=== PATIENT | female | born 1940 | race Caucasian/White ===

== ENCOUNTER 2018-03-23 15:36 | Inpatient (IN) | payer MEDICARE, OTHER ==
[~2018-03-23] VITALS: Ht 147.3 cm; Wt 54.4 kg
[2018-03-23 18:03] LABS: BASOPHILS 0.5 % (0-2); CKMB 4.1 U/L (0.0-3.6); CREATINE KINASE 99 UL (21-215); EOSINOPHILS 0.5 % (0-7); FERRITIN 12 ng/mL (3-244); HEMATOCRIT 23.8 % (36.0-48.0); IMMATURE GRANULOCYTES 0.2 % (0-5); MCHC 27.7 g/dL (31.0-37.0); MCV 71.5 fL (80.0-100.0); MONOCYTES 13.1 % (2-11); NEUTROPHILS 75.7 % (40-80); PLATELET COUNT 139 10x3/uL (130-400); PRO BNP 1754 pg/mL (0-450); RBC 3.33 10x6/uL (4.00-5.40); RDW 17.9 % (11.5-14.5); T4 THYROXINE 7.4 ug/dL (4.7-13.3); THYROID STIMULATING HORMONE 3.75 uIU/mL (0.36-3.74); WBC 5.6 10x3/uL (4.8-10.8)
[2018-03-23 18:06] LABS: HEMOGLOBIN 6.6 g/dL (12-16); MCH 19.8 pg (26.0-34.0)
[2018-03-23] MEDS ORDERED: GLUCOPHAGE1000 MG PO (18:16)
[2018-03-23 18:21] VITALS: BP 131/62; BMI 25.1
[2018-03-23 20:00] VITALS: BP 109/74
[2018-03-23 20:21] LABS: APPEARANCE CLEAR (CLEAR); BILIRUBIN NEGATIVE (NEGATIVE); COLOR STRAW (YELLOW); GLUCOSE NEGATIVE (NEGATIVE); KETONE NEGATIVE (NEGATIVE); NITRITE NEGATIVE (NEGATIVE); PROTEIN NEGATIVE (NEGATIVE); SPECIFIC GRAVITY 1.015 (1.005-1.020)
--- NOTE | 2018-03-23 23:15 | NUR ---
Received patient in bed resting, PIV in left forearm is SL. SCDs on. Lubin catheter in place draining clear yellow urine. Patient forgetful, asked 3 times in 5 minutes to get help up to BR, reminded each time that she has a catheter and shown the tubing, each time responded "you are the first person who told me". Son at bedside. Reminded both son and patient that patient is NPO for a procedure in the morning. Reported from previous nurse that 1st Unit PRBCs has just completed infusing.
[2018-03-24] VITALS (13 sets, daily range): BP systolic 95–123; BP diastolic 56–70; Ht 147.3 cm; Wt 54.4 kg
--- NOTE | 2018-03-24 01:05 | NUR ---
Patient has been given Lasix IV as per orders, to give between Units of PRBCs. Vital Signs taken, 97.9, 107, 20, 116/67 (MAP=78). Second Unit PRBCs initiated at this time. Patient deniesany respiratory distress, no SOB, no fever, tolerating infusion well.
--- NOTE | 2018-03-24 03:12 | NUR ---
Second Unit of PRBCs has infused, VSS except that patient's HR has elevated somewhat in the 120s/min and briefly up to the 130s and low 140s on monitoring coordinator. Patient denies any untoward symptoms, denies fever, denies SOB, denies lightheadedness, denies pain or discomfort. Lubin catheter bag emptied for 2000ml clear yellow urine.
--- NOTE | 2018-03-24 06:48 | HP ---
PATIENT: EVARISTO JOAQUIN MEDICAL RECORD: [id number] ACCOUNT: [id number] LOCATION:[address] : 42 ADMISSION DATE: 03/23/18 PCP: ARLENE OVERTON MD HISTORY AND PHYSICAL EXAMINATION REASON FOR ADMISSION: Leg edema and exertional shortness of breath. HISTORY OF PRESENT ILLNESS: The patient is a 78-year-old female, type 2 diabetic, whom I have not seen in 2 years. She came in today with her son in a wheelchair, complaining of increasing swelling in her lower extremities and exertional shortness of breath over the last 2 months or so. She denied chest pain, change in stools, melena, or hematochezia. The patient appeared clinically anemic and evaluation in the office showed chest x-ray with small bilateral pleural effusions; 4+ edema of the lower extremities to the knees; and irregular heart rate with rates of 160, suggesting AFib. EKG confirmed uncontrolled atrial fibrillation. Her hemoglobin was 6.7 with hematocrit of 24.8, platelet count of 170,000, and MCV of 74. Her creatinine was 1.1, BUN was 19, sodium was 135, glucose was 200, and potassium 4.2. The patient is now being directly admitted to the telemetry floor for transfusion, workup of her anemia, and control of her heart rate. The patient has no cardiac history in the past. PAST MEDICAL HISTORY: Type 2 diabetes mellitus for over 10 years; osteoarthritis, left knee; hyperlipidemia; history of exogenous obesity; essential hypertension; migraine headaches; and postmenopausal. PAST SURGICAL HISTORY: times 2. SOCIAL HISTORY: She is . Her of sudden 10 years ago. She lives with her son. She is nonsmoker, but did smoke in the past. Some coffee consumption. No alcohol use. ALLERGIES: ERYTHROMYCIN, MACROBID, PRAVASTATIN, SULFA, ZETIA, ZOCOR, AND DEPAKOTE. FAMILY HISTORY: Father at 65 with CAD and acute myocardial infarction. Mother at 65 with CAD, hypertension, and diabetes. One brother with CAD. CURRENT MEDICATIONS: Metformin 1000 mg b.i.d., fish oil one daily, aspirin 81 mg a day, and Flonase two nasal sprays each nostril daily. REVIEW OF SYSTEMS: GENERAL: She has had gradual weight gain, exertional shortness of breath, and fatigue. No fever. HEENT: No recent visual change, sinus congestion, or sore throat. RESPIRATORY: Exertional dyspnea with walking one block. She denies PND. Denies cough or chest pain. CARDIAC: No exertional chest pain, palpitations, or claudication, but has noticed marked gradual edema in her lower extremities. She has had no wheezing. GASTROINTESTINAL: No nausea, vomiting, change in stools, or blood per rectum. She has not had colonoscopy. GENITOURINARY: No dysuria or incontinence. GYNECOLOGIC: 2. Post times 2. No vaginal bleeding. ENDOCRINE: Denies polyuria, polydipsia, heat or cold intolerance. NEUROLOGIC: No history of stroke or TIA. She has had remote history of HISTORY AND PHYSICAL [id number] PYMN,EVARISTO migraines, none recently. INTEGUMENT: Denies itching or rash. MUSCULOSKELETAL: Chronic arthralgias, left knee greater than right. PHYSICAL EXAMINATION: VITAL SIGNS: The patient was unable to stand for weight. Blood pressure is 120/80, heart rate is 160-165 and regular. Height is 59 inches. O2 sat is 95% on room air. Pulse as mentioned. GENERAL: The patient is alert and oriented. HEENT: Normocephalic. Her eyes are clear. Her palpebral conjunctivae are pale. She has right lid lag. Oropharynx unremarkable. NECK: Supple. CHEST: She has bilateral crackles without wheeze. She is not tachypneic or retracting. HEART: Irregular rate and rhythm at 160. No murmur appreciated. ABDOMEN: Obese, soft, and nontender. PELVIC: Deferred. RECTAL: Deferred. EXTREMITIES: She has 4+ brawny edema to the knees bilaterally. No petechia. Her skin is extremely pale. INTEGUMENT: Pale. SKIN: No petechia. NEUROLOGIC: Oriented to person, place, and time. Cranial nerves are grossly intact. Gait was not tested. DIAGNOSTIC DATA: EKG shows uncontrolled atrial fibrillation, rate of 165. Poor anterior R waves, suggesting anterior MA, remote. Chest x-ray shows normal cardiac size. Bilateral small pleural effusions. LABORATORY DATA: Lab as above. ASSESSMENT: 1. Uncontrolled atrial fibrillation with high output congestive heart failure. 2. Iron-deficiency anemia, probably exacerbating #1. 3. AODM. 4. Osteoarthritis. 5. Postmenopausal. 6. History of migraine headaches. The patient will be admitted to the monitoring floor. She will be given Lasix. Type and cross for packed cells and transfuse. Cardizem drip. Echocardiogram. Further workup pending clinical course. TRANSINT:[id number] Voice Confirmation ID: [id number] DOCUMENT ID: [id number] HISTORY AND PHYSICAL [id number] EVARISTO JOAQUIN TIMOTHY MD at 0648 CC: [id number] DICTATION DATE: 03/23/18 170 RN RADIATION: 03/23/18 1832 ADM IN [facility] [address] [id number]
--- NOTE | 2018-03-24 07:10 | NUR ---
REPORT RECEIVED FROM RN OPERATING ROOM. PATIENT LAYING IN BED WITH EYES CLOSED AND BREATHING EVENLY . SON IS SLEEPING IN BEDSIDE CHAIR. WILL CONTINUE WITH PLAN OF CARE. SR UP X 2 BED IN LOW POSTION AND CALL LIGHT IN REACH.
[2018-03-24 07:12] LABS: APTT 32.4 SECONDS (22.8-39.4); INR 1.34 (0.85-1.17)
[2018-03-24 07:19] LABS: BASOPHILS 0.9 % (0-2); EOSINOPHILS 0.9 % (0-7); IMMATURE GRANULOCYTES 0.2 % (0-5); LYMPHOCYTES 16.9 % (15-50); MCH 21.4 pg (26.0-34.0); MCHC 29.6 g/dL (31.0-37.0); MCV 72.4 fL (80.0-100.0); MONOCYTES 15.6 % (2-11); NEUTROPHILS 65.5 % (40-80); PLATELET COUNT 129 10x3/uL (130-400); RDW 17.7 % (11.5-14.5); WBC 4.6 10x3/uL (4.8-10.8)
[2018-03-24 07:21] LABS: HEMATOCRIT 29.1 % (36.0-48.0); HEMOGLOBIN 8.6 g/dL (12-16); RBC 4.02 10x6/uL (4.00-5.40)
[2018-03-24 07:25] LABS: ALBUMIN 2.7 g/dL (3.4-5.0); ANION GAP 13.6 mmol/L (8-16); BILIRUBIN - TOTAL 2.73 mg/dL (0.2-1.3); CALCIUM 8.4 mg/dL (8.5-10.1); CARBON DIOXIDE 25.9 mmol/L (21.0-32.0); CREATININE - SERUM 1.1 mg/dL (0.6-1.3); POTASSIUM - SERUM 3.5 mmol/L (3.5-5.1); PROTEIN - SERUM 7.1 g/dL (6.4-8.2)
--- NOTE | 2018-03-24 10:10 | NUR ---
PATIENT IS AWAKE AND ORIENTED X 3. VS ARE GOOD. PATIENT IS NPO AWAITNG EGD. PATIENT DENIES ANY NEEDS OR PAIN. SON AT BEDSIDE. WILL CONTINUE TO MONITOR. SR UP X 2 BED IN LOW POSTION AND CALL LIGHT IN REACH.
--- NOTE | 2018-03-24 14:30 | NUR ---
CONTACTED GI LAB AND SPOKE WITH VANITA. STATED THAT EGD STILL ON SCHEDULE AND WILL BEGIN AT APPROXIMATELY 1600. WILL CONTINUE TO MONITOR PATIENT.
--- NOTE | 2018-03-24 16:26 | NUR ---
PATIENT IS STABLE AND UNCHANGED. VS ARE GOOD. PATIENT TO GI VIA HOPSITAL BED AND GI LAB PERSONNEL.
--- NOTE | 2018-03-24 19:56 | NUR ---
UNIT OF BLOOD STARTED ON PT. PT VITALS STABLE. PT ALERT BUT CONFUSED WITH SHORT TERM MEMORY. PT KEEPS STATING, "I NEED TO PEE." EXPLAINED TO PT THAT THERE IS A FLOEY CATHETER IN PLACE TO NOT HOLD URINE AND LET IT GO. PT HAS TO BE REMINDED EVERY 5 MIN. ABOUT WHATS GOING ON. SHORTTERM MEMORY VERY POOR. BED LOW CALL LIGHT WITHIN REACH. WILL CONTINUE TO MONIOR.
--- NOTE | 2018-03-24 22:09 | NUR ---
PT 1 UNIT OF BLOOD FINISHED TRANSFUSING. VITALS STABLE. NO S/S OF DISTRESS. PT DENIES ANY PAIN OR NEEDS AT THIS TIME. WILL CONTINUE TO MONITOR. SON AT BEDSIDE.
--- NOTE | 2018-03-24 22:31 | NUR ---
CARDIZEM DRIP STARTED AT 10ML/HR. PT BP-124/63 HR-104. NO S/S OF DISTRESS. PT DENIES ANY PAIN OR NEDDS AT THIS TIME. SON AT BEDSIDE. WILL CONTINUE TO MONITOR.
[2018-03-25 00:30] VITALS: BP 107/57
--- NOTE | 2018-03-25 03:56 | NUR ---
PT TRING TO PULL IV OUT OF LFA. ADOLFO WRAPPED COBAN TO PROTECT IV THAT IS RUNNING CARDIZEM. SON AT BEDSIDE. BED LOW CALL LIGHT WITHIN REACH. WILL CONTINUE TO MONITOR.
[2018-03-25 04:00] VITALS: BP 103/58
--- NOTE | 2018-03-25 04:19 | NUR ---
RESTING IN BED WITH EYES CLOSED. NO S/S OF DISTRESS OBSERVED. WILL CONT. POC.
[2018-03-25 05:45] LABS: BASOPHILS 0.2 % (0-2); EOSINOPHILS 0.6 % (0-7); HEMATOCRIT 32.3 % (36.0-48.0); HEMOGLOBIN 9.8 g/dL (12-16); IMMATURE GRANULOCYTES 0.1 % (0-5); LYMPHOCYTES 7.9 % (15-50); MCH 22.3 pg (26.0-34.0); MCHC 30.3 g/dL (31.0-37.0); MCV 73.4 fL (80.0-100.0); MONOCYTES 13.6 % (2-11); NEUTROPHILS 77.6 % (40-80); PLATELET COUNT 140 10x3/uL (130-400); RDW 18.7 % (11.5-14.5); WBC 8.3 10x3/uL (4.8-10.8)
[2018-03-25 06:10] LABS: ALBUMIN 2.6 g/dL (3.4-5.0); ANION GAP 16.1 mmol/L (8-16); BILIRUBIN - DIRECT 0.94 mg/dL (0.00-0.30); BILIRUBIN - INDIRECT 1.68 mg/dL (0.00-1.00); BILIRUBIN - TOTAL 2.62 mg/dL (0.2-1.3); CALCIUM 8.1 mg/dL (8.5-10.1); CREATININE - SERUM 1.2 mg/dL (0.6-1.3); POTASSIUM - SERUM 3.1 mmol/L (3.5-5.1)
[2018-03-25 07:44] VITALS: BP 113/63
--- NOTE | 2018-03-25 08:05 | NUR ---
PT TRYING TO GET OUT OF BED, EVERY 5MINUTES. THINKS THAT SHE HAS TO URINATE, EVEN THOUGHT SHE HAS A GRIFFIN CATHETER. MACHINE INSPECTOR NURSE AND THIS NURSE EXPLAINED TO PT MANY TIMES THAT SHE HAS A GRIFFIN CATHETER THAT IS DRAINING HER BLADDER BUT PT DOES NOT SEEM TO UNDERSTAND. PAGED DR. ARTIS, WAITING KEYMODULE ASSEMBLY MACHINE TENDER BACK.
[2018-03-25 08:16] LABS: FOLATE (FOLIC ACID) - SERUM 8.6 ng/mL (>3.0)
--- NOTE | 2018-03-25 08:35 | NUR ---
AM MEDS GIVEN AT THIS TIME. ALSO GAVE 0.5MG OF ATIVAN FOR ANXIETY, PT STILL STATING THAT SHE NEEDS TO GET OUT OF BED. SON AT BEDSIDE. CALL LIGHT IN REACH, NAD NOTED, WILL CONTINUE TO MONITOR.
[2018-03-25 15:13] VITALS: BP 149/83
--- NOTE | 2018-03-25 17:00 | NUR ---
PROVIDED VERABAL AND WRITTEN DISCHARGE TEACHING TO PT AND , BOTH VERBALIZED UNDERSTANDING REGARDING TEACHING. D/C LT HAND IV WITH CATHETER TIP INTACT. PT LEFT UNIT VIA WHEELCHAIR, ACCOMPANIED BY WITH ALL BELONGINGS. NAD NOTED.
--- NOTE | 2018-03-25 17:12 | NUR ---
BLOOD SUGAR OF 215, 8UNITS OF HUMULIN GIVEN AT THIS TIME. PT RESTING COMFORTABLY AT THIS TIME. SON AT BEDSIDE,NAD NOTED, WILL CONTINUE TO MONITOR.
--- NOTE | 2018-03-25 19:23 | NUR ---
PT IN BED SON AT BEDSIDE. PT DENIES NEEDS AT THIS TIME.
[2018-03-25 19:55] VITALS: BP 130/72
--- NOTE | 2018-03-25 20:17 | NUR ---
ATTEMPTED TO ADMINISTER PO BETAPACE TO PT WHO WAS NOT COOPERATIVE.
[2018-03-25 23:55] VITALS: BP 108/74
--- NOTE | 2018-03-26 01:01 | NUR ---
RESTING IN BED WITH NO DISTRESS. MONITOR AND CPOC. IV CARDIZEM INFUSING. 59 CAF PER TELEMETRY. PT REFUSED HER BEDTIME BETAPACE. SON AT BEDSIDE.
--- NOTE | 2018-03-26 01:33 | NUR ---
DECISION MADE WITH PRIMARY NURSE TO DECREASE RATE OF CARDIZEM TO 5ML/HR AND MONITOR . RATE STAYING 55-60 CAF.
[2018-03-26 03:56] VITALS: BP 135/75
--- NOTE | 2018-03-26 07:25 | NUR ---
ASSESSMENT DONE. DENIES NEEDS.
[2018-03-26 08:28] VITALS: BP 95/63
--- NOTE | 2018-03-26 09:44 | NUR ---
IV PATENT. FAMILY MEMBER AT BS. CALL LIGHT IN REACH. WILL CONT. PLAN OF CARE.
[2018-03-26 12:10] VITALS: BP 98/68
[2018-03-26 16:55] VITALS: BP 132/65
--- NOTE | 2018-03-26 17:37 | NUR ---
SON AT SIDE. WITHOUT CHANGES OR DISTRESS NOTED AT THIS THIS TIME.
[2018-03-26 19:50] VITALS: BP 97/59
[2018-03-26 23:52] VITALS: BP 92/48
[2018-03-27 03:45] VITALS: BP 96/57
[2018-03-27 06:31] LABS: ANION GAP 17.6 mmol/L (8-16); CARBON DIOXIDE 24.5 mmol/L (21.0-32.0); CREATININE - SERUM 1.9 mg/dL (0.6-1.3); POTASSIUM - SERUM 3.1 mmol/L (3.5-5.1)
[2018-03-27 07:50] LABS: BASOPHILS 0.5 % (0-2); EOSINOPHILS 1.7 % (0-7); HEMOGLOBIN 10.4 g/dL (12-16); IMMATURE GRANULOCYTES 0.2 % (0-5); LYMPHOCYTES 10.4 % (15-50); MCH 22.7 pg (26.0-34.0); MCHC 30.6 g/dL (31.0-37.0); MCV 74.1 fL (80.0-100.0); NEUTROPHILS 75.2 % (40-80); PLATELET COUNT 176 10x3/uL (130-400); RBC 4.59 10x6/uL (4.00-5.40); RDW 20.7 % (11.5-14.5); WBC 8.6 10x3/uL (4.8-10.8)
[2018-03-27 08:44] VITALS: BP 95/61
--- NOTE | 2018-03-27 11:46 | EC ---
PATIENT:EVARISTO JOAQUIN DATE OF SERVICE: 03/23/18 SEX: F MEDICAL RECORD: [id number] DATE OF : 42 LOCATION:D.M2 D.212 AGE OF PATIENT: 78 ADMISSION DATE: 03/23/18 REFERRING PHYSICIAN: INTERPRETING PHYSICIAN: KASSIDY FRANCES MD ECHOCARDIOGRAM REPORT ECHO CHARGES 4 ECHO COMPLETE Date: 03/24/18 CLINICAL DIAGNOSIS: CHF/AFIB ECHOCARDIOGRAPHIC MEASUREMENTS (adult normal given) AC root (d.<3.7cm) 2.6 cm LV Septum d (<1.2 cm> 0.8 cm Valve Excursion 1.5 cm LV Septum (systole) 1.1 cm Left Atria (s.<4.0cm> 4.2 cm LVPW d(<1.2cm) 1.2 cm RV (d.<2.3cm) 2.2 cm LVPW (sytole) 1.3 cm LV diastole(<5.6CM) 4.6 cm MV E-F(>70mm/sec) cm LV systole 3.4 cm LVOT Diameter 1.7 cm MV exc.(>10mm) cm Est.ejection fraction (50-75%) % DOPPLER: LVIT cm/sec A cm/sec E 88 cm/sec LA cm/sec RVSP 39.0 mmHg LVOT 90 cm/sec AOP1/2T m/s Asc. Ao 119 cm/sec RVOT 49 cm/sec RA cm/sec PA 64 cm/sec AV Gradient Peak 5.7 mmHg AV Mean 3.1 mmHg AV Area 1.7 cm MV Gradient Peak 6.3 mmHg MV Mean 3.1 mmHg MV Area cm COMMENTS: Private Tutors And Teachers: Corby MILLER Route Sales Trainee: 3 Dr. Pizarro TAPE# PACS Pericardial Effusion N DATE OF SERVICE: ECHOCARDIOGRAM FINDINGS: 1. Left ventricular chamber size is within normal limits. Left ventricular systolic function is mildly depressed. Overall ejection fraction 40%. There is mild global hypokinesis throughout all segments with no discrete wall motion abnormalities present. 2. Left atrium, right atrium and right ventricular chamber sizes are mildly ECHOCARDIOGRAM REPORT [id number] EVARISTO JOAQUIN dilated. 3. Valvular structures have normal structure and motion. 4. Doppler interrogation reveals moderate mitral regurgitation, severe tricuspid regurgitation, no other valvular insufficiency or stenosis. Pulmonary systolic pressure is preserved at 39 mmHg. 5. No evidence of pericardial effusion or left ventricular thrombus. TRANSINT:[id number] Voice Confirmation ID: [id number] DOCUMENT ID: [id number] KASSIDY FRANCES MD at 1146 CC: [id number] DICTATION DATE: 03/24/18 1252 LAUNDRY AID: 03/24/18 2119 ADM IN [facility] [address] [id number]
[2018-03-27 12:02] VITALS: BP 104/64
--- NOTE | 2018-03-27 15:24 | NUR ---
PT IN BED. RESTING QUIETLY. ROOM AIR. BED LOW. CL IN REACH.
[2018-03-27 16:01] VITALS: BP 138/66
--- NOTE | 2018-03-27 16:51 | NUR ---
PT'S GRIFFIN LEAKING. FLUSHED TUBING WITH 10CC OF NS. CHECKED BULB AND IT HAD 2CC NS DISCARDED AND INSERTED GRIFFIN TUBING MORE AND BLEW BULB UP WITH 10CC NS. WILL CONTINUE TO MONITOR.
--- NOTE | 2018-03-27 17:55 | NUR ---
BLADER SCANNED PT AND SHE HAD 0ML. BUT LEAKING AROUND GRIFFIN AND PINK PAD SOILED. SPOKE WITH DR. BARAJAS AND HE STATES TO JUST DC GRIFFIN AND LEAVE IT OUT. VERBALIZED UNDERSTANDING.
--- NOTE | 2018-03-27 18:11 | NUR ---
GRIFFIN CATHETER DC'D PER ORDERS. BEDPAN PLACED IN PT'S ROOM.
--- NOTE | 2018-03-27 18:16 | NUR ---
DR. BARAJAS GAVE ME V.O. TO ORDER PHYSICAL THERAPY.
[2018-03-27 20:00] VITALS: BP 111/56
--- NOTE | 2018-03-27 20:49 | NUR ---
HS MEDS GIVEN CRUSHED IN PUDDING. BED BATH AND LINEN CHANGE COMPLETE, PT INCONTINENT OF URINE.
--- NOTE | 2018-03-27 21:53 | NUR ---
PT YELLING FOR HELP, ENTERED ROOM AND PT TRYING TO GET UP OUT OF BED, PULLING AT IV AND TELEMETRY. ATIVAN 1 MG GIVEN IV FOR S/S AGITATION.
[2018-03-28] VITALS: BP 137/71
--- NOTE | 2018-03-28 00:02 | NUR ---
ASSIST PT WITH USE OF BED GARCIA
--- NOTE | 2018-03-28 03:00 | NUR ---
LYING IN BED WITH EYES CLOSED, CALL LIGHT IN REACH. WILL CONTINUE WITH PLAN OF CARE.
--- NOTE | 2018-03-28 03:44 | NUR ---
RESTING WITH EYES CLOSED, RESPERATIONS EVEN, NO S/S DISTRESS NOTED.
[2018-03-28 04:00] VITALS: BP 118/64
[2018-03-28 06:58] LABS: BASOPHILS 0.8 % (0-2); EOSINOPHILS 2.4 % (0-7); HEMATOCRIT 35.9 % (36.0-48.0); HEMOGLOBIN 10.8 g/dL (12-16); IMMATURE GRANULOCYTES 0.2 % (0-5); LYMPHOCYTES 11.5 % (15-50); MCH 22.5 pg (26.0-34.0); MCHC 30.1 g/dL (31.0-37.0); MCV 74.9 fL (80.0-100.0); MONOCYTES 18.5 % (2-11); NEUTROPHILS 66.6 % (40-80); PLATELET COUNT 183 10x3/uL (130-400); RBC 4.79 10x6/uL (4.00-5.40); RDW 21.3 % (11.5-14.5)
[2018-03-28 06:59] LABS: WBC 6.3 10x3/uL (4.8-10.8)
[2018-03-28 07:03] LABS: ANION GAP 15.2 mmol/L (8-16); CARBON DIOXIDE 25.5 mmol/L (21.0-32.0); CREATININE - SERUM 1.9 mg/dL (0.6-1.3); POTASSIUM - SERUM 3.7 mmol/L (3.5-5.1)
[2018-03-28 09:47] VITALS: BP 174/64
--- NOTE | 2018-03-28 10:32 | NUR ---
BED BATH GIVEN BY THIS NURSE AND FIBERGLASS BONDING MACHINE TENDER AND COMPLETE BED CHANGE DONE.
--- NOTE | 2018-03-28 15:08 | NUR ---
OT NOTE: ATTEMPTED TO EVAL PT IN AM AND PM, HOWEVER, SHE WAS EXTREMEMLY LETHARGIC BOTH TIMES. WILL RE ATTEMPT IN AM. JEMIMA SETHI, OTR/L
[2018-03-28 20:00] VITALS: BP 120/59
--- NOTE | 2018-03-28 20:14 | NUR ---
DR HUGHES AT BED SIDE TO SEE PT.
--- NOTE | 2018-03-28 20:24 | NUR ---
PT YELLING AND CONFUSED OF PLACE AND SITUATION, TRYING TO CLIMB OUT OF BED AND TRYING TO PULL IV OUT, ATIVAN 1 MG GIVEN IV FOR AGITATION.
[2018-03-29] VITALS (11 sets, daily range): BP systolic 100–135; BP diastolic 60–88
--- NOTE | 2018-03-29 03:03 | NUR ---
RN NOTE: PATIENT RESTING COMFORTABLY IN BED. RESPIRATIONS ARE EVEN AND UNLABORED. NO S/S OF DISTRESS. CALL LIGHT WITHIN REACH. WILL CPOC.
--- NOTE | 2018-03-29 03:22 | NUR ---
PT INCONTINENT OF URINE, BATH AND LINEN CHANGE COMPLETE.
--- NOTE | 2018-03-29 04:08 | NUR ---
ASSIST PT WITH USE OF BED GARCIA.
--- NOTE | 2018-03-29 05:23 | NUR ---
ASSIST PT WITHUSE OF BED GARCIA
[2018-03-29 06:39] LABS: ANION GAP 14.2 mmol/L (8-16); CALCIUM 7.7 mg/dL (8.5-10.1); CARBON DIOXIDE 26.2 mmol/L (21.0-32.0); CREATININE - SERUM 1.6 mg/dL (0.6-1.3); POTASSIUM - SERUM 3.4 mmol/L (3.5-5.1)
--- NOTE | 2018-03-29 06:39 | NUR ---
PT ASSISTED WITH USE OF BED GARCIA.
[2018-03-29 06:40] LABS: INR 1.26 (0.85-1.17); PROTIME 15.3 SECONDS (11.6-15.0)
[2018-03-29 06:46] LABS: BASOPHILS 0.9 % (0-2); EOSINOPHILS 2.6 % (0-7); HEMATOCRIT 34.2 % (36.0-48.0); HEMOGLOBIN 10.2 g/dL (12-16); IMMATURE GRANULOCYTES 0.2 % (0-5); LYMPHOCYTES 14.8 % (15-50); MCH 22.4 pg (26.0-34.0); MCHC 29.8 g/dL (31.0-37.0); MONOCYTES 14.8 % (2-11); NEUTROPHILS 66.7 % (40-80); PLATELET COUNT 176 10x3/uL (130-400); RBC 4.56 10x6/uL (4.00-5.40); RDW 21.6 % (11.5-14.5); WBC 5.4 10x3/uL (4.8-10.8)
--- NOTE | 2018-03-29 07:18 | NUR ---
SPOKE WITH DR. OVERTON HE STATES PT IS CLEARED FOR EGD BY HIM.
--- NOTE | 2018-03-29 07:20 | NUR ---
SPOKE WITH DR. LAKE AND SHE STATES PT IS CLEARED BY HIM FOR EGD EVEN THOUGH SHE IS STILL ON THE CARDIZEM DRIP BECAUSE SHE HAS BEEN CONTROLLED AFIB.
--- NOTE | 2018-03-29 07:24 | NUR ---
EGD CONSENTS SIGNED BY PT. PT'S SON STATES "SHE CAN SIGN FOR HERSELF."
--- NOTE | 2018-03-29 08:30 | NUR ---
SPOKE WITH GI LAB AND THEY STATED PT CAN NOT TAKE ANY MEDS IN PUDDING OR SHE WILL HAVE TO WAIT TILL TOMORROW FOR EGD.
--- NOTE | 2018-03-29 09:48 | NUR ---
PT UNABLE TO TAKE SOTALOL WITHOUT OUDDING. SOTALOL HELD.
--- NOTE | 2018-03-29 09:54 | NUR ---
PT SLEEPING AND NOT WAKING UP TO GET UP WITH PHYSICAL THERAPY. P.T. STATES THEY WILL TRY AGAIN LATER.
--- NOTE | 2018-03-29 10:21 | NUR ---
SPOKE WITH GI LAB AND STATED TO THEM PT CAN NOT TAKE THE SOTALOL THEY STATED THAT A DR. BECK ANESTHESIOLOGIST CALL. SPOKE WITH DR. BECK AND HE STATED LETS JUST HOLD SOTALOL TODAY. I VERBALIZED UNDERSTANDING.
--- NOTE | 2018-03-29 10:33 | NUR ---
CONFUSED. LAYING IN BED. CONSENTS FOR EGD SIGNED BY SON ON CHART. SOTALOL HELD PER DUE TO MEDICATIONS BEING CRUSHED AND TAKEN WITH PUDDING. CONTROLLED AFIB ON TELEMETRY. SYEDA GARCIA RESUME PLAN OF CARE. AGREE WITH ASSESSMENT.
--- NOTE | 2018-03-29 12:54 | NUR ---
KIARA HUGHES NOT IN [place] CALLED PHARMACY AND THEY STATED THEY WILL BRING IT.
--- NOTE | 2018-03-29 14:08 | NUR ---
NPO today Previously on Diabetic diet with intake ranging from 0-75% BG 141 today Reviewed chart Will follow up
--- NOTE | 2018-03-29 14:49 | NUR ---
LEFT WRIST 22G IV INSERTED BY VASCULAR ACCESS NURSE.
--- NOTE | 2018-03-29 15:31 | NUR ---
PT IS PREOP'D FOR EGD.
--- NOTE | 2018-03-29 16:00 | NUR ---
PT TAKEN FOR EGD VIA BED.
--- NOTE | 2018-03-29 16:18 | NUR ---
SPOKE WITH BLAKE IN GI LAB THEY STATED THEY HAD A FEW BIOPSIES OBTAINED AND SHE WAS UNDER TIVA AND THEY DID HAVE TO BAG HER A LITTLE BIT BUT SHE CAME OUT OF IT AND IS FINE NOW. THE BIOPSIES WERE OF THE SMALL BOWEL AND STOMACH TO CHECK FOR H. PYLORI AND PT HAD SOME GASTRIC EROSIONS AND GASTRIC ULCERS. PT WILL BE MEDICALLY TREATED AND DR. HE HAS ALREADY CALLED THE ROOM AND SPOKE WITH THE PT'S SON.
--- NOTE | 2018-03-29 16:51 | NUR ---
LYDIA FROM GI LAB STATES THEY ARE HAVING A HARD TIME WAKING PT BUT VS ARE STABLE. SHE STATES IT'S DR. HE'S CALL ON WHAT SHE WANTS TO AND SHE WILL LET ME KNOW.
--- NOTE | 2018-03-29 17:13 | NUR ---
PT ARRIVED TO FLOOR VIA BED FROM GI LAB. AROUSES TO TOUCH. VS STABLE EXCEPT O2 SAT 89% ON ROOM AIR PLACED PT ON 2L OF O2 VIA NC AND SHE IS SATING 92-93%. SON AT BEDSIDE. WILL CONTINUE TO MONITOR.
--- NOTE | 2018-03-29 18:08 | NUR ---
PT AWAKE AND EATING DINNER. VS STABLE.
--- NOTE | 2018-03-29 20:27 | NUR ---
HS MEDS GIVEN, BS 179, COVERED PER S/S. ASSISTED PT WITH USE OF BED GARCIA.
--- NOTE | 2018-03-29 22:31 | NUR ---
HEARD PT SCREAMING, ENTERED ROOM AND PT WAS YELLING FOR HER SON AND FOR SOMEONE TO HELP HER GET UP OUT OF BED, PT HAD LEGS OVER THE SIDE OF THE BED AND ATTEMPTING TO GET UP. MOVED PTS LEGS BACK INTO BED, PULLED PT UP IN BED AND REPOSITIONED HER FOR COMFORT, PT STILL YELLING FOR SOME ONE TO GET HER UP. ATIVAN 1 MG GIVEN FOR S/S AGITATION.
[2018-03-30] VITALS: BP 115/65
--- NOTE | 2018-03-30 01:57 | NUR ---
WOOD TREATING INSPECTOR AT BED SIDE TO ASSIST WITH BED GARCIA.
[2018-03-30 04:00] VITALS: BP 100/60
--- NOTE | 2018-03-30 04:23 | NUR ---
ASSISTED PT WITH USE OF BED GARCIA. REPOSITIONED IN BED FOR COMFORT.
[2018-03-30 06:27] LABS: INR 1.25 (0.85-1.17); PROTIME 15.2 SECONDS (11.6-15.0)
[2018-03-30 06:44] LABS: ALBUMIN 2.7 g/dL (3.4-5.0); ANION GAP 20.1 mmol/L (8-16); BILIRUBIN - DIRECT 1.22 mg/dL (0.00-0.30); BILIRUBIN - INDIRECT 0.85 mg/dL (0.00-1.00); BILIRUBIN - TOTAL 2.07 mg/dL (0.2-1.3); CALCIUM 8.3 mg/dL (8.5-10.1); CARBON DIOXIDE 26.1 mmol/L (21.0-32.0); CREATININE - SERUM 1.4 mg/dL (0.6-1.3); PROTEIN - SERUM 7.3 g/dL (6.4-8.2)
[2018-03-30 06:53] LABS: POTASSIUM - SERUM 4.2 mmol/L (3.5-5.1)
[2018-03-30 07:04] LABS: BASOPHILS 0.6 % (0-2); EOSINOPHILS 1.5 % (0-7); HEMATOCRIT 38.2 % (36.0-48.0); HEMOGLOBIN 11.4 g/dL (12-16); IMMATURE GRANULOCYTES 0.1 % (0-5); LYMPHOCYTES 8.2 % (15-50); MCH 22.6 pg (26.0-34.0); MCHC 29.8 g/dL (31.0-37.0); MCV 75.8 fL (80.0-100.0); MONOCYTES 12.8 % (2-11); NEUTROPHILS 76.8 % (40-80); PLATELET COUNT 195 10x3/uL (130-400); RBC 5.04 10x6/uL (4.00-5.40); RDW 21.9 % (11.5-14.5)
[2018-03-30 07:05] LABS: WBC 8.8 10x3/uL (4.8-10.8)
[2018-03-30 08:00] VITALS: BP 127/75
--- NOTE | 2018-03-30 08:26 | NUR ---
TELEMETRY CAF. IV PATENT. REPOSITIONED FOR BRK. SON AT BS. CALL LIGHT IN REACH. WILL CONT. PLAN OF CARE.
--- NOTE | 2018-03-30 10:03 | NUR ---
Rehab Note- Acute Inpatient REhab prescreeen order received. The patient seems to be a good inpatient rehab candidate when medically stable and ready to be discharged from the acute hospital. She is noted to be on a Cardizem drip at this time. Will continue to follow at this time and will visit withthe patient. Thank you for this referral! Gracie Osuna RN CLincial Liaison, [facility] Rehab
[2018-03-30 11:38] VITALS: BP 137/62
[2018-03-30 14:54] VITALS: BP 130/80
--- NOTE | 2018-03-30 15:18 | NUR ---
OT NOTE: PT REQUIRED MAX A FOR BED MOB. PT REQUIRED MAX A FOR GROOMING TASKS. THANK YOU, AIMEE RODRIGUEZ
--- NOTE | 2018-03-30 18:59 | NUR ---
PT IN BED. SON AT BEDSIDE. PT DENIES NEEDS AT THIS TIME.
--- NOTE | 2018-03-30 19:39 | NUR ---
PT REFUSING CT SCAN AT THIS TIME. THIS WAS THE SECOND ATTEMPT MADE.
[2018-03-30 20:00] VITALS: BP 113/83
[2018-03-31 00:50] VITALS: BP 146/64
--- NOTE | 2018-03-31 04:00 | NUR ---
REEL CART OPERATOR AT BEDSIDE TO OBTAIN VITALS, CALL LIGHT IN REACH. WILL CONTINUE WITH PLAN OF CARE.
[2018-03-31 05:35] VITALS: BP 158/82
[2018-03-31 06:01] LABS: ALBUMIN 2.6 g/dL (3.4-5.0); ANION GAP 14.2 mmol/L (8-16); BILIRUBIN - DIRECT 1.29 mg/dL (0.00-0.30); BILIRUBIN - INDIRECT 0.75 mg/dL (0.00-1.00); BILIRUBIN - TOTAL 2.04 mg/dL (0.2-1.3); CALCIUM 8.4 mg/dL (8.5-10.1); CARBON DIOXIDE 25.6 mmol/L (21.0-32.0); CREATININE - SERUM 1.5 mg/dL (0.6-1.3); POTASSIUM - SERUM 3.8 mmol/L (3.5-5.1); PROTEIN - SERUM 7.1 g/dL (6.4-8.2)
[2018-03-31 06:11] LABS: HEMATOCRIT 37.2 % (36.0-48.0); HEMOGLOBIN 11.1 g/dL (12-16); LYMPHOCYTES 13.4 % (15-50); MCH 22.9 pg (26.0-34.0); MCHC 29.8 g/dL (31.0-37.0); MCV 76.9 fL (80.0-100.0); MEAN PLATELET VOLUME 10.5 fL (7.4-10.4); NEUTROPHILS 73.1 % (40-80); PLATELET COUNT 162 10x3/uL (130-400); RBC 4.84 10x6/uL (4.00-5.40); RDW 21.8 % (11.5-14.5)
[2018-03-31 06:12] LABS: WBC 6.3 10x3/uL (4.8-10.8)
--- NOTE | 2018-03-31 07:28 | NUR ---
PT AWAKE/CONFUSED. SON AT BEDSIDE. CL IN REACH. HAYDER ON. SRX2. NO COMPLAINTS/CONCERNS VOICED AT THIS TIME.
[2018-03-31 08:17] VITALS: BP 139/75
--- NOTE | 2018-03-31 09:54 | NUR ---
PHYSICAL THEREAPY ASSISTED PT TO BEDSIDE COMMODE AN DREQUESTS THAT THEY ASSIST HER BACK. PT IS CONFUSED AND FRUSTRATED SHE CAN'T GO TO THE REGULAR TOILET DESITE MY NUMEROUS EXPLANATIONS. CL IN REACH. SON OUTSIDE DOOR. PT REQUESTS PRIVACY TO HAVE A B.M.
--- NOTE | 2018-03-31 09:59 | NUR ---
PT HAD LARGE B.M. GREATFUL TO USE TOILET.
--- NOTE | 2018-03-31 10:03 | NUR ---
CONCERNED FOR CAREGIVER. HE IS OBVIOUSLY FRSTRATED WITH THE PATIENT AND GETS VERBALLY DEMANDING. SUGGESTED TO HIM HE GO OUT AND GET SOME FOOD OR HOME AND GET SOME REST. WAS IGNORED. HE COMES OFF ANGRY AND FLAT. ASKED CASE MANAGMENT TO SPEAK WITH HIM ABOUT CAREGIVER BURNOUT AND HOPEFULLY CONVINCE HIM TO TAKE SOME TIME FOR HISELF.
[2018-03-31 12:00] VITALS: BP 124/74
--- NOTE | 2018-03-31 13:27 | NUR ---
REVIEWED AND AGREE WITH ASSESMENT.
--- NOTE | 2018-03-31 14:32 | NUR ---
OT NOTE: PT PERFORMED MUCH BETTER TODAY. SHE WANTED TO GO TO BATHROOM, AND WAS ABLE TO TRANSFER WITH MUCH IMPROVEMENT, SHE HAD A PURPOSE TO GET UP. BED MOB WITH MIN ASSIST; TRANSFER FROM BED TO TOILET WITH MIN ASSIST AND USE OF BS COMMODE. ATTEMPTED PERINEAL CARE, HOWEVER, REQUIRED ASSIST FOR THOROUGH CLEANING. JEMIMA SETHI, OTR/L
[2018-03-31 14:59] VITALS: BP 140/80
--- NOTE | 2018-03-31 15:39 | MORECARE ---
CASE MANAGEMENT DISCHARGE SUMMARY PATIENT: EVARISTO JOAQUIN UNIT: [id number] ADM DATE: 03/23/18 AGE: 78 : 42 SEX: F ROOM/BED: D.8079 AUTHOR: EDGARD MON PHYSICIAN: REFERRING PHYSICIAN: ARLENE OVERTON MD DATE OF SERVICE: 03/31/18 Discharge Plan Patient Name: EVARISTO JOAQUIN [facility] [facility] 1940 Planned Disposition: Inpatient Rehab Anticipated Discharge Date: Discharge Date: Expected LOS: Initial Reviewer: [id number] Initial Review Date: 03/31/2018 Generated: 03/31/18 4:38 pm Comments DCP- Discharge Planning Updated by [id number]: Saul Avery on 03/31/18 2:[address] Patient Name: EVARISTO JOAQUIN Admission Status: Urgent Accout number: [id number] Admission Date: 03-23-2018 : 1940 Admission Diagnosis:SHORTNESS OF BREATH Attending: ARLENE OVERTON Current LOS: 8 Anticipated DC Date: Planned Disposition: Inpatient Rehab Primary Insurance: MEDICARE A & B PLANNED EXTERNAL PROVIDER: [facility] INPATIENT REHAB Discharge Planning Comments: CM RECEIVED ORDER FOR INPATIENT REHAB PRESCREENING. CM MET WITH PT IN ROOM TO DISCUSS DISCHARGE PLANNING AND NEEDS. PT REPORTS LIVING AT HOME INDEPENDENTLY WITH HER SON. PT HAS CPAP AND DOES NOT REMEMBER THE NAME OF HER MEDICAL EQUIPMENT PROVIDER. PT HAS NO OUTSIDE SERVICES ASSISTING IN THE HOME. CM DISCUSSED AVAILABILITY OF HOME HEALTH, REHAB SERVICES AND MEDICAL EQUIPMENT. CM DISCUSSED PROVIDERS AND LOCATIONS OF INPATIENT AND CUSTODIAL REHAB PROVIDERS. PT DOES NOT WANT TO GO TO CUSTODIAL FACILITY, PT REPORTS SHE WOULD GO TO REHAB "HERE". PT REPORTS SHE WAS IN [facility] REHAB A COUPLE OF WEEKS AGO BUT WOULD LIKE TO STAY HERE. PT STATES SHE WAS HOME FOR ABOUT ONE WEEK BEFORE GETTING SICK AGAIN AND COMING TO THE HOSPITAL. PT REPORTS HER SON WILL PICK HER UP FOR DISCHARGE HOME. CM REVIEWED CHART, REHAB AT [place] NOTED PT IS GOOD CANDIDATE FOR REHAB WHEN MEDICALLY STABLE. CM WAITING MEDICAL STABILITY AND COMPLETION OF INPATIENT REHAB PRESCREENING BY [facility] INPATIENT REHAB. Securities Clerk: Saul Avery DCPIA - Discharge Planning Initial Assessment Updated by [id number]: Saul Avery on 03/31/18 3:33 pm * Is the patient Alert and Oriented? Yes * How many steps to enter\\exit or inside your home? * PCP DR. OVERTON * [facility] * Preadmission Environment Home with Family * ADLs Independent * Equipment CPAP * Other Equipment UNKNOWN MEDICAL EQUIPMENT PROVIDER * List name and contact numbers for known caregivers / representatives who currently or will assist patient after discharge: LISSETT JOAQUIN, SON, * Verbal permission to speak to the caregivers and representatives has been obtained from the patient. Yes * Community resources currently utilized None * Please name any agencies selected above. NONE * Additional services required to return to the preadmission environment? Yes * Can the patient safely return to the preadmission environment? Yes * Has this patient been hospitalized within the prior 30 days at any hospital? Yes Patient Name: EVARISTO JOAQUIN Page [id number] at 1539 All edits/amendments must be made on the electronic document DICTATION DATE: 03/31/181537 CONTINUOUS IMPROVEMENT FACILITATOR: FLOR 03/31/181537 RPT#: [id number] DC DATE: STATUS: ADM IN [facility] [address] [place] [address] END OF REPORT
[2018-03-31 20:00] VITALS: BP 118/75
--- NOTE | 2018-03-31 20:07 | NUR ---
RECIEVED UP IN BED WITH SPOUSE AT BEDSIDE. ALERT AND ORIENTED X4. UP AD ROEL. IV TO LEFT AC SL.. REMAINS ON DROPPLET ISOLATION R/T POSITIVE INFLUENZA. DENIES ANY NEEDDS AT THIS TIME.
--- NOTE | 2018-03-31 20:30 | NUR ---
RECIEVED SITTING ON THE FLOOR WITH BACK AGAINST THE BED. ROM WNL.V/S'S 97.6,77,128/76, 18 AND O2 SAT 96% ON ROOM AIR. UNABLE TO SAY WHY SHE WAS GETTING OUT OF BED. BOTH ARMS HAVE LARGE DARK PURPLE BRUISING WITH RIGHT ELBOW HAS DRIED UP ABRASION. GENERALIZED EDEMA TO UPPER EXTREMITIES. ALERT AND ORIENTED TO PERSON ONLY.
--- NOTE | 2018-03-31 21:38 | NUR ---
OT NOTE: PT COMPLETED BED MOB WITH MOD A. PT COMPLETED GROOMING WITH MOD A. THANK YOU, AIMEE RODRIGUEZ
[2018-04-01 00:05] VITALS: BP 126/80
[2018-04-01 04:00] VITALS: BP 133/70
--- NOTE | 2018-04-01 08:18 | NUR ---
PATIENT IS ALERT AND AWAKE. SHE IS CONFUSED AT THIS TIME. HE SON IS AT BEDSIDE AND HER BED ALARM IS ON.
[2018-04-01 09:57] VITALS: BP 131/77
--- NOTE | 2018-04-01 10:52 | NUR ---
DR OVERTON ASKED THAT THE CARDEZEM DRIP BE STOPPED. CARDEZEM DRIP STOPPED NOW. PATIENT IS AWAKE AND ALERT. SON IS AT BEDSIDE. BED ALARM ON.
--- NOTE | 2018-04-01 11:08 | NUR ---
RN ROUNDS. PATIENT LYING IN BED WITH ATTENTION TOWARD TELEVISION. CALL LIGHT WITHIN REACH. MALE VISITOR AT BEDSIDE. PATIENT ON TELEMETRY, HR SR 70 AT THIS TIME. NO DISTRESS.
[2018-04-01 12:46] VITALS: BP 136/77
[2018-04-01 17:45] VITALS: BP 120/70
--- NOTE | 2018-04-01 19:11 | NUR ---
RECIEVED LAYING IN BED WITH EYES CLOSED AND HOB ELEVATED. EASILY AROUSES WITH VERBAL STIMULI. BED ALARM IN PLACE AND DOOR OPEN. SON NOT AT BEDSIDE AT THIS TIME. TELEMETRY IN PLACE. LARGE BRUISES ON DENISSE ARMS. IV TO LEFT WRIST SL.. CONFUSED TO PLACE AND TIME. NO S/S OF DISTRESS OBSERVED. WILL CONT. POC.
[2018-04-01 20:00] VITALS: BP 147/89
[2018-04-02] VITALS: BP 115/67
[2018-04-02 04:00] VITALS: BP 118/68
[2018-04-02 05:41] LABS: BASOPHILS 0.7 % (0-2); EOSINOPHILS 2.3 % (0-7); HEMATOCRIT 34.2 % (36.0-48.0); HEMOGLOBIN 9.9 g/dL (12-16); IMMATURE GRANULOCYTES 0.2 % (0-5); LYMPHOCYTES 16.8 % (15-50); MCH 22.6 pg (26.0-34.0); MCHC 28.9 g/dL (31.0-37.0); MCV 77.9 fL (80.0-100.0); MEAN PLATELET VOLUME 10.3 fL (7.4-10.4); MONOCYTES 15.5 % (2-11); NEUTROPHILS 64.5 % (40-80); PLATELET COUNT 133 10x3/uL (130-400); RBC 4.39 10x6/uL (4.00-5.40); RDW 22.4 % (11.5-14.5)
[2018-04-02 05:51] LABS: WBC 4.4 10x3/uL (4.8-10.8)
[2018-04-02 06:48] LABS: ANION GAP 13.2 mmol/L (8-16); CALCIUM 8.3 mg/dL (8.5-10.1); CARBON DIOXIDE 26.3 mmol/L (21.0-32.0); CREATININE - SERUM 1.3 mg/dL (0.6-1.3); POTASSIUM - SERUM 3.5 mmol/L (3.5-5.1)
--- NOTE | 2018-04-02 07:39 | NUR ---
PT LYING IN BED, AWAKE/CONFUSED. SON ASLEEP AT BEDSIDE. CL IN REACH.SRX2. BED ALARM ON. NO CONCERNS/COMPLAINTS VOICED AT THIS TIME.
[2018-04-02 08:33] VITALS: BP 122/74
--- NOTE | 2018-04-02 12:00 | NUR ---
RN ROUNDS. RESTING IN BED. DENIES NEEDS. APPELLATE COURT CLERK TAKING VITAL SIGNS. PATIENT IS ON TELEMETRY, 97 CONTROLLED AFIB. NO DISTRESS.
[2018-04-02 13:26] VITALS: BP 129/82
[2018-04-02 17:01] VITALS: BP 108/77
--- NOTE | 2018-04-02 19:35 | NUR ---
EVENING ROUNDS COMPLETED. REPORT RECEIVED. PT SITTING UP IN BED WITH EYES CLOSED, RR EVEN AND UNLABORED. BED IN LOW POSITION. 80 CONTROLLED AFIB ON TELEMETRY. NO S/S OF DISTRESS NOTED. CALL LIGHT IN REACH. WILL CTM.
--- NOTE | 2018-04-02 19:37 | NUR ---
HAYDER ALARM TURNED ON AND PLACED UNDERNEATH PT.
[2018-04-02 20:00] VITALS: BP 122/77
[2018-04-03] VITALS: BP 107/65
--- NOTE | 2018-04-03 00:26 | NUR ---
PT SITTING UP IN BED WITH EYES CLOSED, RR EVEN AND UNLABORED. HAYDER ALARM TURNED ON, SON AT BEDSIDE. NO S/S OF DISTRESS NOTED. CALL LIGHT IN REACH. WILL CTM.
--- NOTE | 2018-04-03 02:01 | NUR ---
AGREE WITH ASSESSMENT. PT RESTING WITH EYES CLOSED. RESP EVEN AND REGULAR. BED IN HIGH FOWLERS. SON AT BEDSIDE. SR UP X2, CALL LIGHT WITHIN REACH, BED ALARM ON AND DOOR OPEN.
[2018-04-03 04:00] VITALS: BP 108/66
[2018-04-03 08:21] VITALS: BP 109/79
--- NOTE | 2018-04-03 09:00 | NUR ---
PT RESTING IN BED YELLING OUT FOR PAULETTE AND I ASKED WHO SHE WAS ASKING FOR SHE SAID HER BROTHER IT WAS NOTED THAT HER BROTHER IS PASSED WILL MONITER CALL LIGHT IN YELLOW
--- NOTE | 2018-04-03 10:15 | NUR ---
PTS MEDS WERE CRUSHED PT TOOK ON BITE AND REFUSED TO TAKE ANOTHER SHE GRABBED MY HAND AND SAID NO
--- NOTE | 2018-04-03 10:16 | NUR ---
TELEMETRY CAF. HR 89. RETS IN BED WITH CALL LIGHT IN REACH. WILL MONITOR NEEDS.
--- NOTE | 2018-04-03 12:05 | NUR ---
Visited with the patient this AM. She is a little confused stating she lives with her brother who has according to nursing. The nurses also state she got out of bed and fell Tuesday. The nurses feel she may need a psych eval. Rehab will follow. Discussed with the CM Tom. Sarah Hollins RN Clinical Liaison, Rehab
--- NOTE | 2018-04-03 12:26 | NUR ---
ASSESMENT REVIEWED AND AGREE WITH.
[2018-04-03 12:52] VITALS: BP 121/76
--- NOTE | 2018-04-03 15:11 | NUR ---
OT NOTE: PERFORMED BED MOB WITH MOD ASSIST; AMB WITH MOD ASSIST AND USE OF WALKER; SCOOTED UP IN BED WITH MIN ASSIST; REMAINS CONFUSED. JEMIMA SETHI OTR/L
[2018-04-03 15:43] VITALS: BP 129/82
--- NOTE | 2018-04-03 18:12 | NUR ---
PT RESTING IN BED WITH EYES OPEN EATING SUPPER SON AT BEDSIDE CALL LIGHT IN REACH NO PROBLEMS WILL MONITER
--- NOTE | 2018-04-03 19:07 | NUR ---
RECIEVED UP IN BED WITH EYES CLOSED. SON AT BEDSIDE.EASILY AROUSES WITH VERBAL STIMULI. CONTINUES TO BE ORIENTED X1. NO S/S OF DISTRESS OBSERVED.
[2018-04-03 20:00] VITALS: BP 108/73
[2018-04-04] VITALS: BP 120/94
[2018-04-04 04:00] VITALS: BP 112/66
[2018-04-04 09:06] VITALS: BP 131/75
--- NOTE | 2018-04-04 11:14 | NUR ---
RESTS IN BED WITH CALL LIGHT IN REACH. SON AT BS. REVIEWED AND AGREE WITH ASSESMENT.
--- NOTE | 2018-04-04 11:24 | MORECARE ---
CASE MANAGEMENT DISCHARGE SUMMARY PATIENT: EVARISTO JOAQUIN UNIT: [id number] ADM DATE: 03/23/18 AGE: 78 : 42 SEX: F ROOM/BED: D.4383 AUTHOR: EDGARD MON PHYSICIAN: REFERRING PHYSICIAN: ARLENE OVERTON MD DATE OF SERVICE: 04/04/18 Discharge Plan Patient Name: EVARISTO JOAQUIN [facility] [facility] 1940 Planned Disposition: Inpatient Rehab Anticipated Discharge Date: 04/04/18 Discharge Date: Expected LOS: 12 Initial Reviewer: [id number] Initial Review Date: 03/31/2018 Generated: 04/04/18 12:23 pm Comments DCP- Discharge Planning Updated by [id number]: Saul Avery on 03/31/18 2:[address] Patient Name: EVARISTO JOAQUIN Admission Status: Urgent Accout number: [id number] Admission Date: 03-23-2018 : 1940 Admission Diagnosis:SHORTNESS OF BREATH Attending: ARLENE OVERTON Current LOS: 8 Anticipated DC Date: Planned Disposition: Inpatient Rehab Primary Insurance: MEDICARE A & B PLANNED EXTERNAL PROVIDER: [facility] INPATIENT REH[facility] Discharge Planning Comments: CM RECEIVED ORDER FOR INPATIENT REHAB PRESCREENING. CM MET WITH PT IN ROOM TO DISCUSS DISCHARGE PLANNING AND NEEDS. PT REPORTS LIVING AT HOME INDEPENDENTLY WITH HER SON. PT HAS CPAP AND DOES NOT REMEMBER THE NAME OF HER MEDICAL EQUIPMENT PROVIDER. PT HAS NO OUTSIDE SERVICES ASSISTING IN THE HOME. CM DISCUSSED AVAILABILITY OF HOME HEALTH, REHAB SERVICES AND MEDICAL EQUIPMENT. CM DISCUSSED PROVIDERS AND LOCATIONS OF INPATIENT AND SENIOR LIVING REHAB PROVIDERS. PT DOES NOT WANT TO GO TO SENIOR LIVING FACILITY, PT REPORTS SHE WOULD GO TO REHAB "HERE". PT REPORTS SHE WAS IN [facility] REH[facility] A COUPLE OF WEEKS AGO BUT WOULD LIKE TO STAY HERE. PT STATES SHE WAS HOME FOR ABOUT ONE WEEK BEFORE GETTING SICK AGAIN AND COMING TO THE HOSPITAL. PT REPORTS HER SON WILL PICK HER UP FOR DISCHARGE HOME. CM REVIEWED CHART, REHAB AT [place] NOTED PT IS GOOD CANDIDATE FOR REHAB WHEN MEDICALLY STABLE. CM WAITING MEDICAL STABILITY AND COMPLETION OF INPATIENT REHAB PRESCREENING BY [facility] INPATIENT REH[facility]. Fire Department Marine Engineer: Saul Avery DCPIA - Discharge Planning Initial Assessment Updated by [id number]: Saul Avery on 03/31/18 3:33 pm * Is the patient Alert and Oriented? Yes * How many steps to enter\\exit or inside your home? * PCP DR. OVERTON * [facility] * Preadmission Environment Home with Family * ADLs Independent * Equipment CPAP * Other Equipment UNKNOWN MEDICAL EQUIPMENT PROVIDER * List name and contact numbers for known caregivers / representatives who currently or will assist patient after discharge: LISSETT JOAQUIN, SON, * Verbal permission to speak to the caregivers and representatives has been obtained from the patient. Yes * Community resources currently utilized None * Please name any agencies selected above. NONE * Additional services required to return to the preadmission environment? Yes * Can the patient safely return to the preadmission environment? Yes * Has this patient been hospitalized within the prior 30 days at any hospital? Yes Last DP export: 03/31/18 2:38 p Patient Name: EVARISTO JOAQUIN Page [id number] at 1124 All edits/amendments must be made on the electronic document DICTATION DATE: 04/04/18 112 CHECKING DEPARTMENT SUPERVISOR: FLOR 04/04/181122 RPT#: [id number] MD DATE: STATUS: ADM IN [facility] [address] [place] [address] END OF REPORT
--- NOTE | 2018-04-04 11:37 | MORECARE ---
CASE MANAGEMENT DISCHARGE SUMMARY PATIENT: EVARISTO JOAQUIN UNIT: [id number] ADM DATE: 03/23/18 AGE: 78 : 42 SEX: F ROOM/BED: D.2165 AUTHOR: EDGARD MON PHYSICIAN: REFERRING PHYSICIAN: ARLENE OVERTON MD DATE OF SERVICE: 04/04/18 Discharge Plan Patient Name: EVARISTO JOAQUIN Facility[facility]:[place] : 1940 Planned Disposition: Inpatient Rehab Anticipated Discharge Date: 04/04/18 Discharge Date: Expected LOS: 12 Initial Reviewer: [id number] Initial Review Date: 03/31/2018 Generated: 04/04/18 12:37 pm Comments DCP- Discharge Planning Updated by [id number]: Saul Avery on 04/04/18 10:[address] Patient Name: EVARISTO JOAQUIN Encounter No: [id number] : 1940 Primary Insurance: MEDICARE A & B Anticipated DC Date: 04-04-2018 Planned Disposition: Inpatient Rehab External Planned Provider: [facility] INPATIENT REH[facility] DCP follow-up note: CM SPOKE TO ANA ROSA OF INPATIENT REHAB, THEY PLAN TO ACCEPT PT TODAY FOR REHAB ONCE ALL CONSULTS AND TESTING ARE COMPLETED. CM CALLED AND SPOKE TO DR. OVERTON'S NURSE, LEYDI, DISCUSSED DR. FRANCO TODAY REGARDING NO LONGER NEEDING PSYCH CONSULTATION AND REHAB TO ACCEPT AFTER ULTRASOUND AND IF PT NEEDS ANTICOAGULATION, IT WILL NEED TO BE STARTED PRIOR TO DISCHARGE TO REHAB. CM RECEIVED CALL FROM LEYDI WHO INFORMED CM THAT DR. OVERTON WILL DISCHARGE PT TODAY TO INPATIENT REHAB. PT AND SON LISSETT NOTIFIED IN ROOM, IN AGREEMENT WITH DISCHARGE TO INPATIENT REHAB. IMPORTANT MESSAGE FROM MEDICARE PROVIDED AND EXPLAINED. CM NOTIFIED ANA ROSA OF INPATIENT REHAB. [facility] INPATIENT REH[facility] TO CONTACT MED 2 NURSE WITH ROOM NUMBER WHEN READY TO ACCEPT PT AND NURSE REPORT. GENEVIEVE Torres DCP- Discharge Planning Updated by [id number]: Saul Avery on 03/31/18 2:[address] Patient Name: EVARISTO JOAQUIN Admission Status: Urgent Accout number: [id number] Admission Date: 03-23-2018 : 1940 Admission Diagnosis:SHORTNESS OF BREATH Attending: ARLENE OVERTON Current LOS: 8 Anticipated DC Date: Planned Disposition: Inpatient Rehab Primary Insurance: MEDICARE A & B PLANNED EXTERNAL PROVIDER: [facility] IN[facility] RE[facility] Discharge Planning Comments: CM RECEIVED ORDER FOR INPATIENT REHAB PRESCREENING. CM MET WITH PT IN ROOM TO DISCUSS DISCHARGE PLANNING AND NEEDS. PT REPORTS LIVING AT HOME INDEPENDENTLY WITH HER SON. PT HAS CPAP AND DOES NOT REMEMBER THE NAME OF HER MEDICAL EQUIPMENT PROVIDER. PT HAS NO OUTSIDE SERVICES ASSISTING IN THE HOME. CM DISCUSSED AVAILABILITY OF HOME HEALTH, REHAB SERVICES AND MEDICAL EQUIPMENT. CM DISCUSSED PROVIDERS AND LOCATIONS OF INPATIENT AND CARE HOME REHAB PROVIDERS. PT DOES NOT WANT TO GO TO CARE HOME FACILITY, PT REPORTS SHE WOULD GO TO REHAB "HERE". PT REPORTS SHE WAS IN [facility] REHAB A COUPLE OF WEEKS AGO BUT WOULD LIKE TO STAY HERE. PT STATES SHE WAS HOME FOR ABOUT ONE WEEK BEFORE GETTING SICK AGAIN AND COMING TO THE HOSPITAL. PT REPORTS HER SON WILL PICK HER UP FOR DISCHARGE HOME. CM REVIEWED CHART, REHAB AT [place] [facility] NOTED PT IS GOOD CANDIDATE FOR REHAB WHEN MEDICALLY STABLE. CM WAITING MEDICAL STABILITY AND COMPLETION OF INPATIENT REHAB PRESCREENING BY [facility] IN[facility]. Manager Alliance: aSul Avery DCPIA - Discharge Planning Initial Assessment Updated by [id number]: Saul Avery on 03/31/18 3:33 pm * Is the patient Alert and Oriented? Yes * How many steps to enter\\exit or inside your home? * PCP DR. OVERTON * [facility] * Preadmission Environment Home with Family * ADLs Independent * Equipment CPAP * Other Equipment UNKNOWN MEDICAL EQUIPMENT PROVIDER * List name and contact numbers for known caregivers / representatives who currently or will assist patient after discharge: LISSETT JOAQUIN, SON, * Verbal permission to speak to the caregivers and representatives has been obtained from the patient. Yes * Community resources currently utilized None * Please name any agencies selected above. NONE * Additional services required to return to the preadmission environment? Yes * Can the patient safely return to the preadmission environment? Yes * Has this patient been hospitalized within the prior 30 days at any hospital? Yes Coverage Notice Reviewer: [id number] - Saul Avery Notice Issued Date-Time: 04/04/2018 11:15 Notice Type: IM Discharge Notice Notice Delivered To: Family Member Relationship to Patient: Son Service Writer Advisor Name: LISSETT JOAQUIN Delivery Method: HAND - Hand Delivered Elma Days: Prior Verbal Notification: Recipient Understood Notice: Yes Recipient Signature: Yes Med Rec Note Co-signed by Attending: Coverage Notice Comment: Last DP export: 04/04/18 10:24 a Patient Name: EVARISTO JOAQUIN Page 23096 at 1137 All edits/amendments must be made on the electronic document DICTATION DATE: 04/04/181136 CREATIVE CONSULTANT: FLOR 04/04/18 1137 RPT#: [id number] DC DATE: STATUS: ADM IN [facility] [address] [place] [address] END OF REPORT
--- NOTE | 2018-04-04 12:23 | NUR ---
OT NOTE: PT PERFORMED VERY WELL TODAY. BED MOB FROM SUPINE TO SIT WITH MIN ASSIST; SIT TO STAND WITH MIN ASSIST; ABLE TO AMB GREATER THAN 75 FT WITH WALKER AND MIN/MOD ASSIST. OCCASSIONAL LOB DURING DURING AMB. PRACTICED BED MOB INCLUDING SIT TO SUPINE WITH SEVERAL TRIALS BUT ENDED UP PERFORMING WITH MIN ASSIST. ALSO EDUCATION ON SCOOTING UP IN BED. JEMIMA SETHI, Josselyn TR/L
[2018-04-04 12:49] VITALS: BP 132/71
[2018-04-04] MEDS ORDERED: XANAX0.25 MG PO (13:12)
[2018-04-04] MEDS ORDERED: FLUTICASONE PRO16 GM NASAL (13:12)
[2018-04-04] MEDS ORDERED: LASIX40 MG PO (13:12)
[2018-04-04] MEDS ORDERED: BETAPACE 80 MG80 MG PO (13:12)
[2018-04-04] MEDS ORDERED: MELATONIN 3 MG1 TAB PO (13:13)
[2018-04-04] MEDS ORDERED: PROTONIX40 MG PO (13:13)
[2018-04-04] MEDS ORDERED: MIRALAX17 GM PO (13:13)
[2018-04-04] MEDS ORDERED: JANUVIA50 MG PO (13:13)
--- NOTE | 2018-04-04 16:42 | NUR ---
OT NOTE: PT COMPLETED BED MOBILITY WITH SUPINE TO SIT WITH MIN/MOD A. PT COMPLETED SIT TO STAND WITH MIN A. PT COMPLETED UE AROM AXS. THANK YOU, AIMEE RODRIGUEZ
[2018-04-04 16:59] VITALS: BP 121/71
--- NOTE | 2018-04-04 17:17 | NUR ---
REPORT CALLED TO [place] IN INPATIENT REHAB.
--- NOTE | 2018-04-04 18:40 | NUR ---
WITHOUT CHANGES OR DISTRESS AT THIS TIME.
--- NOTE | 2018-04-04 18:44 | NUR ---
TRANSFERRED INTO INPATIENT REHAB.
--- NOTE | 2018-04-05 09:21 | MORECARE ---
CASE MANAGEMENT DISCHARGE SUMMARY PATIENT: EVARISTO JOAQUIN UNIT: [id number] ADM DATE: 03/23/18 AGE: 78 : 42 SEX: F ROOM/BED: D.2537 AUTHOR: EDGARD MON PHYSICIAN: REFERRING PHYSICIAN: ARLENE OVERTON MD DATE OF SERVICE: 04/05/18 Discharge Plan Patient Name: EVARISTO JOAQUIN Facility: [facility]:[place] : 1940 Planned Disposition: Inpatient Rehab Anticipated Discharge Date: 04/04/18 Discharge Date: 04/04/2018 Expected LOS: 12 Initial Reviewer: [id number] Initial Review Date: 03/31/2018 Generated: 04/05/18 10:21 am Comments DCP- Discharge Planning Updated by [id number]: Saul Avery on 04/04/18 10:[address] Patient Name: EVARISTO JOAQUIN Encounter No: [id number] : 1940 Primary Insurance: MEDICARE A & B Anticipated DC Date: 04-04-2018 Planned Disposition: Inpatient Rehab External Planned Provider: [facility] INPATIENT REHAB DCP follow-up note: CM SPOKE TO ANA ROSA OF INPATIENT REHAB, THEY PLAN TO ACCEPT PT TODAY FOR REHAB ONCE ALL CONSULTS AND TESTING ARE COMPLETED. CM CALLED AND SPOKE TO DR. OVERTON'S NURSE, LEYDI, DISCUSSED DR. FRANCO TODAY REGARDING NO LONGER NEEDING PSYCH CONSULTATION AND REHAB TO ACCEPT AFTER ULTRASOUND AND IF PT NEEDS ANTICOAGULATION, IT WILL NEED TO BE STARTED PRIOR TO DISCHARGE TO REHAB. CM RECEIVED CALL FROM LEYDI WHO INFORMED CM THAT DR. OVERTON WILL DISCHARGE PT TODAY TO INPATIENT REHAB. PT AND SON LISSETT NOTIFIED IN ROOM, IN AGREEMENT WITH DISCHARGE TO INPATIENT REHAB. IMPORTANT MESSAGE FROM MEDICARE PROVIDED AND EXPLAINED. CM NOTIFIED ANA ROSA OF INPATIENT REHAB. [facility] INPATIENT REHAB TO CONTACT [facility] 2 NURSE WITH ROOM NUMBER WHEN READY TO ACCEPT PT AND NURSE REPORT. Saul Avery, CASE MANAGEMENT DCP- Discharge Planning Updated by [id number]: Saul Avery on 03/31/18 2:[address] Patient Name: EVARISTO JOAQUIN Admission Status: Urgent Accout number: [id number] Admission Date: 03-23-2018 : 1940 Admission Diagnosis:SHORTNESS OF BREATH Attending: ARLENE OVERTON Current LOS: 8 Anticipated DC Date: Planned Disposition: Inpatient Rehab Primary Insurance: MEDICARE A & B PLANNED EXTERNAL PROVIDER: [facility] INPATIENT REHAB Discharge Planning Comments: CM RECEIVED ORDER FOR INPATIENT REHAB PRESCREENING. CM MET WITH PT IN ROOM TO DISCUSS DISCHARGE PLANNING AND NEEDS. PT REPORTS LIVING AT HOME INDEPENDENTLY WITH HER SON. PT HAS CPAP AND DOES NOT REMEMBER THE NAME OF HER MEDICAL EQUIPMENT PROVIDER. PT HAS NO OUTSIDE SERVICES ASSISTING IN THE HOME. CM DISCUSSED AVAILABILITY OF HOME HEALTH, REHAB SERVICES AND MEDICAL EQUIPMENT. CM DISCUSSED PROVIDERS AND LOCATIONS OF INPATIENT AND USP REHAB PROVIDERS. PT DOES NOT WANT TO GO TO USP FACILITY, PT REPORTS SHE WOULD GO TO REHAB "HERE". PT REPORTS SHE WAS IN [facility] [place] [facility] A COUPLE OF WEEKS AGO BUT WOULD LIKE TO STAY HERE. PT STATES SHE WAS HOME FOR ABOUT ONE WEEK BEFORE GETTING SICK AGAIN AND COMING TO THE HOSPITAL. PT REPORTS HER SON WILL PICK HER UP FOR DISCHARGE HOME. CM REVIEWED CHART, REHAB AT [place] NOTED PT IS GOOD CANDIDATE FOR REHAB WHEN MEDICALLY STABLE. CM WAITING MEDICAL STABILITY AND COMPLETION OF INPATIENT REHAB PRESCREENING BY [facility] INPATIENT REHAB. Sole Conditioner: Saul Avery DCPIA - Discharge Planning Initial Assessment Updated by [id number]: Saul Avery on 03/31/18 3:33 pm * Is the patient Alert and Oriented? Yes * How many steps to enter\\exit or inside your home? * PCP DR. OVERTON * [facility] * Preadmission Environment Home with Family * ADLs Independent * Equipment CPAP * Other Equipment UNKNOWN MEDICAL EQUIPMENT PROVIDER * List name and contact numbers for known caregivers / representatives who currently or will assist patient after discharge: LISSETT JOAQUIN, SON, * Verbal permission to speak to the caregivers and representatives has been obtained from the patient. Yes * Community resources currently utilized None * Please name any agencies selected above. NONE * Additional services required to return to the preadmission environment? Yes * Can the patient safely return to the preadmission environment? Yes * Has this patient been hospitalized within the prior 30 days at any hospital? Yes Coverage Notice Reviewer: [id number] - Saul Avery Notice Issued Date-Time: 04/04/2018 11:15 Notice Type: IM Discharge Notice Notice Delivered To: Family Member Relationship to Patient: Son Office Executive Name: LISSETT JOAQUIN Delivery Method: HAND - Hand Delivered Elma Days: Prior Verbal Notification: Recipient Understood Notice: Yes Recipient Signature: Yes Med Rec Note Co-signed by Attending: Coverage Notice Comment: Last DP export: 04/04/18 10:37 a Patient Name: EVARISTO JOAQUIN Page 09500 at 0921 All edits/amendments must be made on the electronic document DICTATION DATE: 04/05/18920 EFFERVESCENT SALTS COMPOUNDER: FLOR 04/05/18920 RPT#: [id number] DC DATE:04/04/18 STATUS: DIS IN [facility] [address] [place] [address] END OF REPORT
== END 2018-04-04 18:44 | DRG 811 ==
LOC: D.M2 15:36
PROVIDERS: Family Medicine; Internal Medicine Gastroenterology; ADMIT Family Medicine
PROC: 0DB78ZX Excision of Stomach, Pylorus, Via Natural or Artificial Opening Endoscopic, Diagnostic (ICD-10-PCS; 2018-03-29)
PROC: 0DB98ZX Excision of Duodenum, Via Natural or Artificial Opening Endoscopic, Diagnostic (ICD-10-PCS; principal; 2018-03-29 07:00)
DX: D50.9 Iron deficiency anemia, unspecified (principal); I50.21 Acute systolic (congestive) heart failure; E87.0 Hyperosmolality and hypernatremia; I11.0 Hypertensive heart disease with heart failure; I48.91 Unspecified atrial fibrillation; R74.8 Abnormal levels of other serum enzymes; N28.9 Disorder of kidney and ureter, unspecified; E87.6 Hypokalemia; K29.00 Acute gastritis without bleeding; K29.80 Duodenitis without bleeding; R40.0 Somnolence; T42.4X5A Adverse effect of benzodiazepines, initial encounter; E11.9 Type 2 diabetes mellitus without complications

== ENCOUNTER 2018-04-04 18:00 | Inpatient (IN) | payer MEDICARE, OTHER ==
[~2018-04-04] VITALS: Ht 147.3 cm; Wt 54.4 kg
[~2018-04-04 18:00] MED LIST: BETAPACE 80 MG80 MG PO; FLUTICASONE PRO16 GM NASAL; GLUCOPHAGE1000 MG PO; JANUVIA50 MG PO; LASIX40 MG PO; MELATONIN 3 MG1 TAB PO; MIRALAX17 GM PO; PROTONIX40 MG PO; XANAX0.25 MG PO
--- NOTE | 2018-04-04 18:30 | NUR ---
PATIENT RECEIVED ON THE UNIT. BED IN LOW POSITION WITH SIDERAILS X2 AND CALL LIGHT WITHIN REACH. PATIENT DEMONSTRATES APPROPRIATE USE OF A CALL LIGHT. THE PATIENT APPEARS COMFORTABLE WITH NO QUESTIONS OR CONCERNS AT THIS TIME. BED ALARM FUNCTIONING WELL.
[2018-04-04 20:00] VITALS: BP 135/73
[2018-04-04 21:37] VITALS: BP 135/73; BMI 25.1
--- NOTE | 2018-04-05 02:06 | NUR ---
PATIENT IS AWAKE AND WATCHING TELEVISION. SHE NO QUESTIONS OR CONCERNS AT THIS TIME.
[2018-04-05 08:00] VITALS: BP 94/67
--- NOTE | 2018-04-05 08:00 | NUR ---
SHIFT ASSMT COMPLETED.
[2018-04-05 09:11] LABS: ANION GAP 10.4 mmol/L (8-16); CALCIUM 8.6 mg/dL (8.5-10.1); CARBON DIOXIDE 29.5 mmol/L (21.0-32.0); CREATININE - SERUM 1.1 mg/dL (0.6-1.3); POTASSIUM - SERUM 3.9 mmol/L (3.5-5.1)
[2018-04-05 09:14] LABS: BASOPHILS 1.3 % (0-2); EOSINOPHILS 1.3 % (0-7); HEMATOCRIT 38.1 % (36.0-48.0); IMMATURE GRANULOCYTES 0.4 % (0-5); MCH 22.7 pg (26.0-34.0); MCHC 28.9 g/dL (31.0-37.0); MCV 78.6 fL (80.0-100.0); MEAN PLATELET VOLUME 10.5 fL (7.4-10.4); PLATELET COUNT 139 10x3/uL (130-400); RBC 4.85 10x6/uL (4.00-5.40); RDW 23.4 % (11.5-14.5); WBC 5.3 10x3/uL (4.8-10.8)
[2018-04-05 13:58] VITALS: Ht 147.3 cm; Wt 54.4 kg
--- NOTE | 2018-04-05 16:22 | NUR ---
PATIENT ADMITTED TO REHAB FROM ACUTE FLOOR. DR. OVERTON IS PATIENT PCP. DME AT HOME IS [facility]. PATIENT HAS NO OUTSIDE SERVICES AT THIS TIME. DISCHARGE PLANS ARE FOR PATIENT TO RETURN HOME WITH FAMILY. WILL CONTINUE TO FOLLOW WITH PATIENT.
--- NOTE | 2018-04-05 19:25 | NUR ---
PT SITTING UP IN BED. CALL LIGHT IN REACH. PT DENIES NEEDS OR PAIN. BED IN LOW. SIDE RAILS X2. RESP EVEN AND UNLABORED. WILL CONTINUE TO MONITOR.
[2018-04-05 21:37] VITALS: BP 107/69
--- NOTE | 2018-04-06 00:23 | NUR ---
TOILETED 4 TIMES SINCE 1899. CALL LIGHT IN REACH. PT SITTING UP IN BED. SON IN ROOM. BED IN LOW. SIDE RAILS X2. WCTM
--- NOTE | 2018-04-06 02:43 | NUR ---
PT WITNESSED WALKING OUT OF ROOM INTO HALLWAY. PLACED REQUESTED TO SIT IN WHEELCHAIR. CHAIR ALARM PLACED IN WHEELCHAIR. WCTM SON IN ROOM.
--- NOTE | 2018-04-06 02:54 | NUR ---
AWAKE AND HAD WANDERED INTO HALLWAY. ASSISTED BACK TO WHEELCHAIR WITH ALARM. REMINDED TO ALWAYS CALL FOR ASSISTANCE. SON AT BEDSIDE.
--- NOTE | 2018-04-06 03:41 | NUR ---
PT STILL AWAKE UP IN WHEELCHAIR. SON IN ROOM. DENIES NEEDS. CALL LIGHT IN REACH. OFFERED XANEX AND PT REFUSED. WCTM
--- NOTE | 2018-04-06 05:03 | NUR ---
PT SITTING UP IN BED. CALL LIGHT IN REACH. DENIES NEEDS. WCTM
[2018-04-06 08:00] VITALS: BP 101/63
--- NOTE | 2018-04-06 08:00 | NUR ---
SHIFT ASSMT COMPLETE
--- NOTE | 2018-04-06 16:00 | NUR ---
SITTING UP IN CHAIR.
--- NOTE | 2018-04-06 17:15 | NUR ---
SON AT BEDSIDE.CONFUSED.ARGUEMENTIVE.IMPULSIVE TO GET UP.
--- NOTE | 2018-04-06 19:23 | NUR ---
TOILETED PT. PT BACK IN WHEELCHAIR. ALARM ON. SON IN ROOM. CALL LIGHT IN REACH. DENIES NEEDS OR PAIN. WCTM RESP EVEN AND UNLABORED.
[2018-04-06 21:10] VITALS: BP 117/63
--- NOTE | 2018-04-07 00:35 | NUR ---
TOILETED PT. PT SITTING UP IN BED. CALL LIGHT IN REACH. PT DENIES NEEDS OR PAIN. WCTM
--- NOTE | 2018-04-07 02:42 | NUR ---
AWAKE AND IN BED. TALKING WITH SON. SLEPT A FEW HOURS AFTER HS MEDICATIONS BUT NOW AWAKE. RESPIRATIONS UNLABORED. SON AT BEDSIDE.
--- NOTE | 2018-04-07 04:15 | NUR ---
PT RESTING QUIETLY. CALL LIGHT IN REACH. SON BEDSIDE. WCTM
[2018-04-07 07:08] LABS: BASOPHILS 0.9 % (0-2); EOSINOPHILS 3.1 % (0-7); HEMATOCRIT 33.5 % (36.0-48.0); HEMOGLOBIN 9.9 g/dL (12-16); IMMATURE GRANULOCYTES 0.2 % (0-5); MCHC 29.6 g/dL (31.0-37.0); MCV 77.9 fL (80.0-100.0); MONOCYTES 15.6 % (2-11); NEUTROPHILS 61.2 % (40-80); PLATELET COUNT 119 10x3/uL (130-400); RDW 23.7 % (11.5-14.5); WBC 4.5 10x3/uL (4.8-10.8)
[2018-04-07 07:22] LABS: ANION GAP 12.1 mmol/L (8-16); CALCIUM 8.1 mg/dL (8.5-10.1); CARBON DIOXIDE 30.9 mmol/L (21.0-32.0); CREATININE - SERUM 1.2 mg/dL (0.6-1.3)
--- NOTE | 2018-04-07 08:15 | NUR ---
PT RESTING IN BED WITH EYES OPEN CALL LIGHT IN REACH WILL MONITER
[2018-04-07 09:35] VITALS: BP 101/62
--- NOTE | 2018-04-07 14:16 | NUR ---
Nutrition Follow Up: Pt was asleep at the time of RD visit. Interview deferred at this time. Diet: ADA PO Intake: 53% meal avg No BM since admit Labs reviewed Meds noted including Lasix Rec continue current diet. RD following.
--- NOTE | 2018-04-07 15:45 | NUR ---
PT RESTING IN BED WITH EYES OPEN CALL LIGHT IN REACH WILL MONITER
--- NOTE | 2018-04-07 19:35 | NUR ---
THE PATIENT WAS SITTING IN HER WHEELCHAIR AND WATCHING TELEVISION WHEN STAFF ENTERED HER ROOM. PATIENT AND SON EDUCATED ON THE NEED TO CALL FOR NURSING WHENEVER THE PATIENT WANTS TO GET UP. FAMILY DEMONSTRATES UNDERSTANDING VIA TEACHBACK METHOD. THE PATIENT APPEARS COMFORTABLE AND HAS NO QUESTIONS OR CONCERNS AT THIS TIME.
[2018-04-07 21:21] VITALS: BP 108/57
--- NOTE | 2018-04-08 02:36 | NUR ---
PATIENT APPEARS TO BE SLEEPING COMFORTABLY. BED IN THE LOW POSITION WITH SIDERAILS X2 AND CALL LIGHT WITHIN REACH.
--- NOTE | 2018-04-08 08:00 | NUR ---
SITTING UP IN WC IN ROOM EATING BREAKFAST. SON IN ROOM WITH PT. SHE IS CONFUSED BUT PLEASANT.
[2018-04-08 10:44] VITALS: BP 100/66
--- NOTE | 2018-04-08 12:58 | NUR ---
SITTING UP IN WC IN ROOM EATING LUNCH. SON NOT IN ROOM AT THIS MOMENT. SHE DENIES NEEDS. FEEDS HERSELF. CALL LIGHT IN REACH
--- NOTE | 2018-04-08 20:00 | NUR ---
THE PATIENT WAS LYING IN BED WHEN STAFF ENTERED HER ROOM. BED IS IN THE LOW POSITION WITH SIDERAILS X3. THE PATIENT IS CONFUSED TO PLACE, TIME, AND SITUATION. PATIENT WAS EDUCATED ON THE NEED TO REMAIN IN BED AND CALL FOR THE NURSE WHENEVER SHE NEEDS TO GET UP. PATIENT IS UNABLE TO DEMONSTRATE ANY TEACHABACK. THE PATIENT HAS NO OTHER QUESTIONS OR CONCERNS AT THIS TIME.
--- NOTE | 2018-04-09 01:23 | NUR ---
THE PATIENT APPEARS TO BE SLEEPING. FAMILY IN HER ROOM, WITH HER.
[2018-04-09 04:50] VITALS: BP 113/72
--- NOTE | 2018-04-09 08:01 | NUR ---
SITTING UP IN WC IN ROOM FOR BREAKFAST. IS VERY CONFUSED THIS MORNING. PLEASANT AND COOPERATIVE BUT NEEDS ONE STEP INSTRUCTIONS. SON IN ROOM.
[2018-04-09 08:14] VITALS: BP 104/52
--- NOTE | 2018-04-09 12:12 | NUR ---
SITTING IN WC IN ROOM QUIETLY. SON IN ROOM WITH HER.
[2018-04-09 14:24] LABS: APPEARANCE CLEAR (CLEAR); BILIRUBIN NEGATIVE (NEGATIVE); COLOR YELLOW (YELLOW); GLUCOSE NEGATIVE (NEGATIVE); KETONE NEGATIVE (NEGATIVE); NITRITE POSITIVE (NEGATIVE); PROTEIN NEGATIVE (NEGATIVE); SPECIFIC GRAVITY 1.015 (1.005-1.020); UROBILINOGEN NORMAL (NORMAL)
[2018-04-09 14:25] LABS: BACTERIA MANY /hpf (NONE SEEN); EPITHELIAL CELLS 0-5 /hpf (0-5); RED CELLS - URINE 0-5 /hpf (0-5); WHITE CELLS - URINE 0-5 /hpf (0-5)
--- NOTE | 2018-04-09 17:02 | NUR ---
RESTING QUIETLY IN BED. SON NOT AT BEDSIDE AT PRESENT. SHE IS SLEEPY AND DRIFTS BACK OFF TO SLEEP WITH NURSE TALKING TO HER.
--- NOTE | 2018-04-09 20:26 | NUR ---
THE PATIENT WAS LYING IN BED WHEN STAFF ENTERED EHR ROOM. BED IS IN TH ELOW POSITION WITH SIDERAILS X3 AND CALL LIGHT WITHIN REACH. THE PERSON WAS EDUCATED ON THE USE OF A CALL LLIGHT AND DEMONSTRATES APPROPRIATE USE, BUT, BASED ON PREVIOUS ATTEMPTS AT EDUCATING THIS PATIENT, SHE WILL NOT RETAIN ANY INFORMATION. THE PATIENT APPEARS COMFORTABLE WITH NO QUESTIONS OR CONCERNS AT THIS TIME.
[2018-04-09 21:53] VITALS: BP 132/72
--- NOTE | 2018-04-10 03:03 | NUR ---
PATIENT IS AWAKE AND USING TH EBATHROOM. SON IN ROOM. TH EPATIENT APPEARS COMFORTABLE AND HAS NO QUESTIONS OR CONCERNS AT THIS TIME.
[2018-04-10 08:12] LABS: BASOPHILS 0.5 % (0-2); EOSINOPHILS 2.1 % (0-7); HEMOGLOBIN 9.5 g/dL (12-16); MCH 23.5 pg (26.0-34.0); MCHC 29.7 g/dL (31.0-37.0); MCV 79.2 fL (80.0-100.0); NEUTROPHILS 65.4 % (40-80); PLATELET COUNT 129 10x3/uL (130-400); RBC 4.04 10x6/uL (4.00-5.40); RDW 25.1 % (11.5-14.5); WBC 4.4 10x3/uL (4.8-10.8)
[2018-04-10 08:14] LABS: ANION GAP 9.5 mmol/L (8-16); CARBON DIOXIDE 34.4 mmol/L (21.0-32.0); CREATININE - SERUM 1.1 mg/dL (0.6-1.3); POTASSIUM - SERUM 3.9 mmol/L (3.5-5.1)
[2018-04-10 08:31] VITALS: BP 104/63
--- NOTE | 2018-04-10 10:28 | NUR ---
SITTING UP IN CHAIR IN ROOM. SON IN ROOM WITH PT. SHE IS STILL CONFUSED BUT PLEASANT. DENIES PAIN. CONT OF BOWEL AND BLADDER.
--- NOTE | 2018-04-10 17:04 | NUR ---
SITTING UP IN WC IN ROOM. SHE DECLINED TO LAY DOWN IN BED AND REST. SON IN ROOM.
--- NOTE | 2018-04-10 19:00 | NUR ---
PT SMILING PLEASANT UP TO TOILET, FLUIDS AND CALL LIGHT WITHIN REACH
[2018-04-10 20:00] VITALS: BP 118/83
--- NOTE | 2018-04-11 01:07 | NUR ---
PT UP IN CHAIR CONTINUES TO NEED TO TOILET TWICE AN HOUR, LASIX ORDER CHANGED FROM [id number] TO [phone] SO PT CAN SLEEP AT NIGHT
--- NOTE | 2018-04-11 08:00 | NUR ---
SHIFT ASSMT COMPLETED,
[2018-04-11 08:20] VITALS: BP 111/72
[2018-04-11 20:00] VITALS: BP 117/63
--- NOTE | 2018-04-11 23:44 | NUR ---
PT CALLING OUT FOR BROTHER AFTER SON WENT HOME FOR A WHILE, UP IN CHAIR, TOILETED, FLUIDS AND CALL LIGHT WITHIN REACH
--- NOTE | 2018-04-12 04:33 | NUR ---
PT REFUSED SHOWER LAST NIGHT BUT STATED SHE WOULD TAKE IT IN AM, PT STILL REFUSING SHOWER. NON COMPLIANT WITH HER CARE, FLUIDS AND CALL LIGHT WITHIN REACH
[2018-04-12 07:50] LABS: ANION GAP 13.9 mmol/L (8-16); CALCIUM 8.6 mg/dL (8.5-10.1); CARBON DIOXIDE 32.1 mmol/L (21.0-32.0); CREATININE - SERUM 1.1 mg/dL (0.6-1.3)
[2018-04-12 08:00] VITALS: BP 103/61
--- NOTE | 2018-04-12 08:00 | NUR ---
SHIFT ASSMT COMPLETED.
[2018-04-12 08:16] LABS: BASOPHILS 0.2 % (0-2); EOSINOPHILS 2.4 % (0-7); LYMPHOCYTES 17.6 % (15-50); MCH 23.7 pg (26.0-34.0); MCHC 29.4 g/dL (31.0-37.0); MCV 80.6 fL (80.0-100.0); MONOCYTES 14.7 % (2-11); NEUTROPHILS 65.1 % (40-80); PLATELET COUNT 151 10x3/uL (130-400); RBC 4.22 10x6/uL (4.00-5.40); RDW 25.9 % (11.5-14.5); WBC 4.5 10x3/uL (4.8-10.8)
--- NOTE | 2018-04-12 16:00 | NUR ---
IN WC.SON AT BEDSIDE.
--- NOTE | 2018-04-12 16:44 | NUR ---
CARE TEAM MEEETING: PATIENT PROGRESSING IN THERAPY.TENATIVE DISCHARGE DATE IS 04/20/18. WILL CONTINUE TO FOLLOW WITH PATIENT.
--- NOTE | 2018-04-12 20:23 | NUR ---
PT UP IN CHAIR SON IN ROOM PT TOILETED FLUIDS AND CALL LIGHT WITHIN REACH
[2018-04-12 22:57] VITALS: BP 112/67
--- NOTE | 2018-04-13 01:23 | NUR ---
PT UP ON SIDE OF BED CONTINUES TO BE NON COMPLIANT BLE SWOLLEN LLE WEEPING, REFUSES TO LET LEGS BE WRAPPED, CONTINUES TO NEED TOILETING FREQUENTLY, SON AT BEDSIDE, FLUIDS AND CALL LIGHT WITHIN REACH
--- NOTE | 2018-04-13 03:38 | NUR ---
PT HAS BEEN COUGHING OFF AND ON ALL NIGHT, SEEMS TO HAVE INCREASED THE LAST COUPLE OF HOURS, SOME MAY BE PUT ON FOR ATTENTION
[2018-04-13 08:00] VITALS: BP 113/73
--- NOTE | 2018-04-13 08:16 | NUR ---
PT SITTING UP IN WHEELCHAIR EATING BREAKFAST, DENIES NEEDS. FAMILY AT BEDSIDE. WCTM.
--- NOTE | 2018-04-13 09:38 | NUR ---
PT AM MEDS ADMINSITERED. PT DENIES NEEDS AT THIS TIME. WCTM.
--- NOTE | 2018-04-13 20:45 | NUR ---
PT INCONTINENCE, CHANGED GOWN.
[2018-04-13 21:20] VITALS: BP 154/86
--- NOTE | 2018-04-14 01:39 | NUR ---
ASSISTED PT TO BATHROOM AND BACK TO BED. CALL LIGHT IN REACH.
--- NOTE | 2018-04-14 01:50 | NUR ---
RESTING IN BED. RESPIRATIONS UNLABORED. HAS PERSISTANT COUGH. MEDICATED FOR COUGH EARLIER IN SHIFT BUT DOESNT SEEM TO RELIEVE COUGH. MESSAGE WILL BE LEFT FOR MD TO ADDRESS ON ROUNDS. SON AT BEDSIDE.
--- NOTE | 2018-04-14 04:12 | NUR ---
PT COUGH A LOT, AND SIT UP IN BED. CALL LIGHT IN REACH.
[2018-04-14 07:53] LABS: ANION GAP 13.8 mmol/L (8-16); CALCIUM 9.2 mg/dL (8.5-10.1); CARBON DIOXIDE 33.8 mmol/L (21.0-32.0); CREATININE - SERUM 1.6 mg/dL (0.6-1.3); POTASSIUM - SERUM 4.6 mmol/L (3.5-5.1)
[2018-04-14 08:00] VITALS: BP 139/35
--- NOTE | 2018-04-14 09:15 | NUR ---
PT AM MEDS ADMINSITERED. PT FAMILY AT BEDSIDE. PT DENEIS NEEDS. WCTM.
[2018-04-14 09:16] LABS: BASOPHILS 0.2 % (0-2); EOSINOPHILS 0 % (0-7); HEMATOCRIT 34.6 % (36.0-48.0); HEMOGLOBIN 10.2 g/dL (12-16); IMMATURE GRANULOCYTES 0.3 % (0-5); MCH 23.9 pg (26.0-34.0); MCHC 29.5 g/dL (31.0-37.0); MONOCYTES 16.4 % (2-11); NEUTROPHILS 77.1 % (40-80); PLATELET COUNT 128 10x3/uL (130-400); RBC 4.27 10x6/uL (4.00-5.40); RDW 27.1 % (11.5-14.5)
--- NOTE | 2018-04-14 11:06 | NUR ---
NUTRITION F/U CHART REVIEWED. PT VISIT. TOLERATING DIABETIC DIET BUT ONLY 25% INTAKE BREAKFAST. PT DID NOT VERBALIZE REASON FOR POOR INTAKE. JUST STATED "I HAVEN'T BEEN OFFERED ANYTHING". MAY NEED TO CHANGE DIET TO REG IF PO DOES NOT IMPROVE. RD FOLLOWING
--- NOTE | 2018-04-14 18:03 | NUR ---
PT HAD INCONT EPISODE. PT TAKEN TO BR, BRIEF AND PANTS CHANGED. PT CURRNETLY SITTING UP IN WHEELCHAIR EATING DINNER, FAMILY AT BEDSIDE. WCTM.
--- NOTE | 2018-04-14 18:55 | NUR ---
PATIENT IS RESTING IN HER BED. HER SON IS AT BEDSIDE. THEY DENY ANY NEEDS AT THIS TIME.
[2018-04-14 20:22] VITALS: BP 108/50
--- NOTE | 2018-04-15 | NUR ---
PATIENT IS SLEEPING. SON IS AT HER BEDSIDE. BED IS DOWN LOW WITH SIDE RAILS UP X2, BED ALARM ACTIVATED AND CALL LIGHT IN REACH.
--- NOTE | 2018-04-15 04:00 | NUR ---
PATIENT IS SLEEPING. BED IS DOWN LOW WITH SIDE RAILS UP X2. CALL LIGHT IS IN REACH. HER SON IS AT BEDSIDE.
--- NOTE | 2018-04-15 07:25 | NUR ---
PT RESTING EYES CLOSED RR ARE EVEN AND UNLABORED. FAMILY AT BEDSIDE. WCTM.
--- NOTE | 2018-04-15 08:52 | NUR ---
PT AM MEDS ADMINISTERED CRUSHED IN VANILLA PUDDING. PT ASSISTED TO BR. PT HAD EPISODE OF INCONT. PT BRIEF AND PANTS CHANGED. PT CURRENTLY SITTING UP IN WHEELCHAIR EATING BREAKFAST, FAMILY AT BEDSIDE. SOPHIA.
--- NOTE | 2018-04-15 18:27 | NUR ---
PT SITTING UP IN WHEELCHAIR. ENCOURAGED PT TO EAT. PT STATES SHE DOESN'T WANT IT. PT CHANGED OF INCONT EPISODE. WCTM.
--- NOTE | 2018-04-15 19:00 | NUR ---
PATIENT IS SITTING UP IN HER WHEELCHAIR. HER SON IS SITTING AT BEDSIDE. THEY DENY ANY NEEDS AT THIS TIME.
[2018-04-15 22:32] VITALS: BP 141/49
--- NOTE | 2018-04-15 22:47 | NUR ---
PATIENT RESTING IN WHEELCHAIR. WILL NOT GET IN BED AND STATES SHE WILL NOT TAKE A SOWER NOW. STATES SHE WILL TAKE SHOWER IN THE MORNING. CHAIR ALARM IS IN PLACE AND ACTIVATED.
--- NOTE | 2018-04-16 | NUR ---
PATIENT IS SITTING UP IN WHEELCHAIR. HAS REFUSED TO GET IN HER BED AND REFUSED A SHOWER. CHAIR ALARM IS ACTIVATED AND CALL LIGHT IS IN REACH.
--- NOTE | 2018-04-16 04:00 | NUR ---
PATIENT IS SLEEPING IN HER BED. HER SON IS AT BEDSIDE. BED IS DOWN LOW WITH SIDE RAILS UP X2. CALL LIGHT IN REACH. BED ALARM ACTIVATED.
--- NOTE | 2018-04-16 05:40 | NUR ---
PATIENT ASSISTED TO THE BATHROOM. AGAIN REFUSED SHOWER AND LINEN CHANGE. STATES SHE WANTS TO GO BACK TO BED. HER SON IS AT BED SIDE. BED IS DOWN LOW WITH SIDE RAILS UP X2. CALL LIGHT IN REACH. BED ALARM ACTIVATED.
--- NOTE | 2018-04-16 08:00 | NUR ---
SHIFT ASSMT COMPLETED.
[2018-04-16 08:32] VITALS: BP 103/64
--- NOTE | 2018-04-16 12:00 | NUR ---
UP OOB FOR LUNCH.CL IN REACH.
--- NOTE | 2018-04-16 16:00 | NUR ---
UP IN WC.CL IN REACH.
--- NOTE | 2018-04-16 19:10 | NUR ---
PATIENT IS IN HER BED AND APPEARS TO BE SLEEPING. HER SON IS AT BEDSIDE. BED ALARM ACTIVATED AND CL IN REACH.
[2018-04-16 20:14] VITALS: BP 116/72
--- NOTE | 2018-04-17 | NUR ---
PATIENT IS SLEEPING. BED IS DOWN LOW WITH SR UP X2. BED ALARM ACTIVATED AND CALL LIGHT IN REACH.
--- NOTE | 2018-04-17 04:00 | NUR ---
PATIENT IS SLEEPING. HER SON IS AT BEDSIDE. BED IS DOWN LOW WITH SR UP X2. CL IS IN REACH OF SON. BED ALARM IS ACTIVATED.
[2018-04-17 07:26] LABS: ANION GAP 12.3 mmol/L (8-16); CALCIUM 8.4 mg/dL (8.5-10.1); CARBON DIOXIDE 34.2 mmol/L (21.0-32.0); CREATININE - SERUM 1.3 mg/dL (0.6-1.3); POTASSIUM - SERUM 3.5 mmol/L (3.5-5.1)
[2018-04-17 07:36] LABS: HEMATOCRIT 33.1 % (36.0-48.0); HEMOGLOBIN 9.8 g/dL (12-16); MCH 24.3 pg (26.0-34.0); MCHC 29.6 g/dL (31.0-37.0); MCV 82.1 fL (80.0-100.0); PLATELET COUNT 116 10x3/uL (130-400); RBC 4.03 10x6/uL (4.00-5.40); WBC 2.8 10x3/uL (4.8-10.8)
[2018-04-17 08:02] VITALS: BP 121/76
[2018-04-17 09:18] LABS: EOSINOPHILS 3 % (0-7); LYMPHOCYTES 14 % (15-50); MONOCYTES 11 % (2-11); NEUTROPHILS 57 % (40-80)
[2018-04-17 09:19] LABS: ANISOCYTOSIS OCC; HYPOCHROMASIA OCC; PLATELET ESTIMATE DECREASED; ROULEAUX OCC
--- NOTE | 2018-04-17 09:26 | NUR ---
ALERT AND ORIENTED. NO C/O PAIN. RESP EVEN AND UNLABORED. CL IN REACH.
--- NOTE | 2018-04-17 09:59 | NUR ---
BEING TESTED FOR FLU. TO REMAIN IN ROOM UNTIL TESTED/RESULTS.
--- NOTE | 2018-04-17 10:59 | NUR ---
Nutrition Follow Up: Pt was in therapy at the time of RD visit. Interview deferred at this time. Diet: ADA PO Intake: 24% meal avg - po intake continues poor BM: 04/15/18 Labs reviewed Meds noted including Lasix Will change diet to regular to encourage po intake. Will continue to honor food preferences. Rec consider an appetite stimulant. RD following.
--- NOTE | 2018-04-17 12:11 | NUR ---
PLACED ON DROPLET PRECAUTIONS. TESTED POSITIVE FOR FLU.
--- NOTE | 2018-04-17 13:35 | NUR ---
SITTING IN CHAIR. NO DISTRESS NOTED.
--- NOTE | 2018-04-17 16:04 | NUR ---
SITTING UP IN CHAIR. NO CHANGE IN ASSESSMENT. CL IN REACH.
[2018-04-17 20:00] VITALS: BP 113/77
--- NOTE | 2018-04-17 20:03 | NUR ---
PT ON DROPLET PRECAUTIONS, TESTED POSITIVE FOR TYPE A FLU, FLUIDS AND CALL LIGHT WITHIN REACH, UP IN CHAIR
--- NOTE | 2018-04-18 01:08 | NUR ---
PT ASLEEP IN RECLINER NO NEEDS NOTED FLUIDS AND CALL LIGHT WITHIN REACH
[2018-04-18 07:50] LABS: ANION GAP 9.1 mmol/L (8-16); CALCIUM 8.6 mg/dL (8.5-10.1); CARBON DIOXIDE 36.1 mmol/L (21.0-32.0); CREATININE - SERUM 1.2 mg/dL (0.6-1.3); POTASSIUM - SERUM 3.2 mmol/L (3.5-5.1)
[2018-04-18 08:00] VITALS: BP 108/60
--- NOTE | 2018-04-18 10:49 | NUR ---
ALERT AND ORIENTED. SITTING IN WC. RESP EVEN AND UNLABORED. CL IN REACH. NO C/O PAIN.
--- NOTE | 2018-04-18 12:47 | NUR ---
ACCIDENT URINE ON LINENS/GOWN-STAFF CLEANED UP.
--- NOTE | 2018-04-18 16:41 | NUR ---
SPOKE WITH PATIENT SON ABOUT DISCHARGING HOME ON THE 04/20/18. AT THIS TIME HE FEELS THAT HE CANNOT CARE FOR HIS MOTHER , I HAVE INFORMED HIM THAT HE CAN HAVE AN APPOINTMENT TIME WITH [facility] TO HELP HIM LEARN TO ASSIT HIS MOTHER. HE WAS NOT OPEN TO MANY SUGGESTIONS TRAINING HIM TO CARE FOR HIS MOTHER. HE WILL ATTEND THE CARE TEAM MEETING ON 04/19/18 TO ASK IF HIS MOTHER COULD FLY TO [place] TO LIVE WITH HIS BROTHER. ALSO HE WOULD LIKE A REFERRAL FAXED TO [facility] AND I TOLD HIM THAT SHE MAYBE DECLINED DUE TO HER HAVING THE FLU. REFERRAL HAS BEEN FAXED PER REQUEST. HE FELT THAT WE "WERE DUMPING" THIS DISCHARGE DATE ON HIM AND I INFORMED HIM HIS MOTHER HAS BEEN ON THIS UNIT FOR 2 1/2 WEEKS . WILL CONTINUE TO FOLLOW WITH PATIENT.
--- NOTE | 2018-04-18 16:49 | NUR ---
PT SITTING UP IN WHEELCHAIR EYES CLOSED. SON IN ROOM. NO SIGNS OF DISTRESS OR PAIN. CALL LIGHT IN REACH. WILL CONTINUE TO MONITOR.
--- NOTE | 2018-04-18 19:20 | NUR ---
AWAKE AND ALERT. SITTING IN WHEELCHAIR IN ROOM. RESPIRATIONS UNLABORED. NO DISTRESS NOTED. SON AT BEDSIDE. DROPLET ISOLATION IN PLACE.
[2018-04-18 19:57] VITALS: BP 113/68
--- NOTE | 2018-04-19 02:50 | NUR ---
SLEEPS AT INTERVALS IN CHAIR. SON WENT HOME EARLIER IN NIGHT SO SHE CALLS OUT FOR HIM SOME. I EXPLAINED HE WENT HOME. RESPIRATIONS UNLABORED. NO ACUTE DISTRESS NOTED.
[2018-04-19 06:15] VITALS: BP 127/75
--- NOTE | 2018-04-19 06:40 | NUR ---
PATIENT NOTED SITTING ON FLOOR AFTER HEARING BED ALARM. PATIENT STATED "I DONT KNOW" WHEN ASK WHERE SHE WAS GOING. ROOMMATE STATED SHE WAS GOING TO BATHROOM BUT"WENT THE WRONG WAY" NO APPARANT INJURY. ASSITED UP AND TO BATHROOM AND BACK TO WHEELCHAIR. VITAL SIGNS TAKEN. ALERT WITH MILD CONFUSION BUT THIS IS NOT NEW. PUPILS EQUAL. MOVES ALL EXTREMITIES ON COMMAND. SON LISSETT NOTIFIED. SOFTWARE QA MANAGER NOTIFED. VOICEMAIL AND MESSAGE LEFT FOR DR GALEANA.
[2018-04-19 07:47] LABS: BASOPHILS 0.2 % (0-2); EOSINOPHILS 0.7 % (0-7); HEMATOCRIT 35.6 % (36.0-48.0); HEMOGLOBIN 10.6 g/dL (12-16); LYMPHOCYTES 18.8 % (15-50); MCH 24.2 pg (26.0-34.0); MCHC 29.8 g/dL (31.0-37.0); MCV 81.3 fL (80.0-100.0); MONOCYTES 14.4 % (2-11); NEUTROPHILS 65.9 % (40-80); PLATELET COUNT 118 10x3/uL (130-400); RBC 4.38 10x6/uL (4.00-5.40); RDW 27.3 % (11.5-14.5)
[2018-04-19 07:59] LABS: WBC 4.1 10x3/uL (4.8-10.8)
[2018-04-19 08:00] VITALS: BP 112/63
[2018-04-19 09:19] LABS: ALP - ISO (ALP) 209 IU/L (39-117); ALP - ISO (BONE) FRACTION 32 % (14-68); ALP - ISO (LIVER) FRACTION 68 % (18-85); ALP - ISO(INTESTINAL) FRACTION 0 % (0-18)
--- NOTE | 2018-04-19 10:00 | NUR ---
HIT AT STAFF AFTER TRYING TO GIVE HER MEDS.HOLDING IN MOUTH.SPITTING IN [place] AND WASTE BASKET.BUT PT STATES SHE IS TAKING THEM.TRIED TO GIVE COUGH MEDICINE SHE TOOK THE SPOON AND EMPTIED THE MEDICINE INTO A KLEENEX;SHE ALSO TRIED TO POUR IT IN HER WATER CUP.PT CONTINUE'S TO SAY SHE IS TAKING HER MEDICATION.
--- NOTE | 2018-04-19 19:42 | NUR ---
AWAKE AND RESTING IN CHAIR IN ROOM. RESPIRATIONS UNLABORED. NO DISTRESS NOTED. TECH WILL ASSIST TO BED. REMAINS IN DROPLET ISOLATION.
[2018-04-19 21:19] VITALS: BP 127/88
--- NOTE | 2018-04-20 02:06 | NUR ---
IN BED BUT ONLY DOZING AT SHORT INTERVALS. TALKING WITH ROOMATE A LOT. NO ACUTE DISTRESS NOTED.
--- NOTE | 2018-04-20 04:02 | NUR ---
HAS MADE SEVERAL ATTEMPTS AND ASKING TO COME OUT OF ROOM. ISOLATION PROTOCOL EXPLAINED TO HER. SHE BECAME AGITATED AND SAID "I DONT HAVE THE FLU" VERY ARGUMENTATIVE. ASSISTED TO BED AGAIN.
--- NOTE | 2018-04-20 04:47 | NUR ---
RESTLESS HOURS. ONLY DOZED AT INTERVALS. NONCOMPLIANT WITH CALLING FOR ASSISTANCE BEFORE GETTING OUT OF BED. NOW SITTING IN WHEELCHAIR DRINKING COFFEE.
[2018-04-20 08:14] VITALS: BP 121/52
[2018-04-20] MEDS ORDERED: Tessalon Perle PO (08:24)
[2018-04-20] MEDS ORDERED: ELIQUIS2.5 MG PO (08:24)
[2018-04-20] MEDS ORDERED: TAMIFLU75 MG PO (08:24)
[2018-04-20] MEDS ORDERED: ROBITUSSIN DM 110 ML PO (08:25)
[2018-04-20] MEDS ORDERED: K-TAB10 MEQ PO (08:25)
--- NOTE | 2018-04-20 10:45 | NUR ---
PATIENT DISCHARGING TO [facility] VIA FACILITY [facility]. NO DME OR HOME HEALTH NEEDED AT THIS TIME. AN APPPOITMENT WITH DR. OVERTON AND DR. HE WILL BE MADE AT TIME OF DISCHARGE FROM FACILITY.PATIENT CHOICE FORM FOR SNF AND IM[facility] FORMS SIGNED, COPY GIVEN TO FAMILY AND FILED IN CHART.DISCHARGE INSTRUCTIONS WITH [facility] FAXED TO PCP AND TO SNF
[2018-04-20] MEDS ORDERED: JANUVIA50 MG PO (14:56)
--- NOTE | 2018-04-21 17:01 | RHP ---
PATIENT: EVARISTO JOAQUIN MEDICAL RECORD: [id number] ACCOUNT: [id number] LOCATION:[facility] D.1108 : 42 ADMISSION DATE: 04/04/18 REHABILITATION HISTORY AND PHYSICAL EXAMINATION POST ADMISSION PHYSICIAN EXAMINATION DATE OF ADMISSION: 04/04/2018. ADMITTING DIAGNOSES: Neuromuscular disorders, disuse myopathy. HISTORY OF PRESENT ILLNESS: The patient is a 78-year-old female patient admitted to the rehab with a working diagnosis of disuse myopathy. She was actually a direct admit from Dr. Trujillo's office. She presented with complaints of increasing swelling in her lower extremities and exertional shortness of breath over the last 2 months. Upon exam, she was chronically anemic and evaluation showed a chest x-ray with small bilateral pleural effusions. She had 4+ edema of the lower extremities up to the knees and irregular heart rate up to 160, suggesting AFib. She was in uncontrolled AFib. Her hemoglobin and hematocrit were 6.3 and 23.8. She has received 3 units of packed red blood cells. Her platelet count was normal. Her MCV was markedly decreased at 74. Creatinine was good. All of her electrolytes were pretty good except for an elevated blood sugar. She was admitted to the acute hospital and telemetry for transfusion, workup of her anemia, and control the heart rate. She had a cardiology consult, had been followed, medication adjustments to monitor heart rate and rhythm. Remains on telemetry, has been controlled AFib since then. She had an EGD done, which showed gastric ulcers. She has been having some confusion, medication adjustments for both her heart and also her stomach, proximal muscle weakness, loss of balance. She has a high fall risk. She had been deconditioning. We will monitor her O2 sats closely. She has had impaired mobility, self-care deficit. These are all barriers to her discharge. She lives at home with her son, was independent with ADLs and moderately independent with mobility and use of rolling walker prior to coming in. She is currently mod assist for ADLs and mod assist with her mobility. She and her son plans for her return home at her prior level of functioning or hopefully better on discharge. COMORBIDITIES: Include edema, hypokalemia, renal insufficiency, gastric ulcers, cholelithiasis, adult onset diabetes, and osteoarthritis. She is postmenopausal. She has got a history of migraine headaches. Also, a history now of gastric ulcers and also erosive gastritis. She has got a history of atrial fibrillation with rapid ventricular response, iron deficient anemia, and CHF. PAST MEDICAL HISTORY: Significant for diabetes, osteoarthritis, hyperlipidemia, exogenous obesity, hypertension, migraine headache. She is postmenopausal. PAST SURGICAL HISTORY: Includes times 2. ALLERGIES: SULFA, MACROBID, DEPAKOTE, SIMVASTATIN AND ERYTHROPOIETIN. CURRENT MEDICATIONS: Include Flonase nasal spray daily. She is on Betapace 80 mg b.i.d., Xanax 0.25 mg q.8 hours p.r.n., furosemide 40 mg b.i.d., Protonix 40 mg b.i.d., polyethylene glycol 17 grams in 8 ounces of water daily, Januvia 50 mg daily, and melatonin she is on 3 mg p.o. q.h.s. HISTORY AND PHYSICAL [id number] EMANIEVARISTO HABITS: No alcohol or tobacco use. FAMILY HISTORY: Noncontributory. SOCIAL HISTORY: The patient hopes to return back home with her son and get back to her prior level of functioning. REVIEW OF SYSTEMS: GENERAL: Does complain of weakness and fatigue. HEENT: Denies cold, cough, or congestion. CARDIOVASCULAR: Denies chest pain. PHYSICAL EXAMINATION: VITAL SIGNS: Stable, afebrile. GENERAL: A well-developed female in no acute distress, alert upon exam. HEENT: Normocephalic and atraumatic. Mucosa moist. NECK: Supple without adenopathy. LUNGS: Clear at this time with no wheeze, rhonchi, or rales. HEART: Irregular rate and rhythm. No murmurs, rubs or gallops. ABDOMEN: Benign. EXTREMITIES: No clubbing, cyanosis. Does have some peripheral edema. NEUROLOGIC: She does have noted weakness. LABORATORY DATA: White count is 4.4, H&H 9.9 and 34.2, her MCV is 77.9, her platelet count is 133. Her chemistry shows sodium 140, potassium 4.4, BUN and creatinine of 28 and 1.3 and blood sugar is noted to be 149. Her total bilirubin is elevated, though at 2.04, direct is 1.29, indirect is 0.75. Liver functions are normal. Alkaline phosphatase is 177. Her proBNP upon admission was noted to be 1754. Her albumin on the was low at 2.6. TSH was also elevated at 3.75 on the . ASSESSMENT: This is a 78-year-old female patient admitted to the rehab with a working diagnosis of disuse myopathy. The patient has potential to make improvement. We instituted the following multidisciplinary therapies to include, but not limited to physical, occupational, respiratory, speech, nutritional services, prosthetics and orthotics. Given her complex medical condition and risk for more complications, rehabilitation services cannot be provided at a low level of care such as nursing home facility. PLAN: 1. Admit to [facility] rehab for intensive inpatient therapy to include the following disciplines: A. Physical therapy to improve gait, all transfer skills and bed mobility to a modified independent level. B. Occupational therapy to improve activities of daily living to a modified independent level. C. Case management to assist with discharge planning and placement options. D. Nutrition to assist with nutritional needs. E. Rehabilitation nursing to assist with monitoring the patient's underlying medical conditions and to assist with any type of bowel or bladder management. 2. The patient's current medication and medical care will be continued. 3. The patient will be placed on standard fall precautions. 4. We will consider starting her on a small dose of Synthroid during her stay. 5. I am going to follow up with the care team and staffing today at noon and see the patient again in the a.m. HISTORY AND PHYSICAL [id number] EVARISTO JOAQUIN TRANSINT:[id number] Voice Confirmation ID: [id number] DOCUMENT ID: [id number] 04/07/2018 Edited for ron HOGUE. MYKEL notes whether there has been none or any medical/functional change since admission: - No change since preadmission screen. MYKEL attests patient continues to be appropriate for IRF: - Continues to be appropriate. CATALINO GALEANA MD at 1700 CC: [id number] DICTATION DATE: 04/05/18 08 PBX REPAIRER: 04/05/18 0841 DIS IN 04/20/18 [facility] [address] [id number]
== END 2018-04-20 13:45 | DRG 93 ==
LOC: D.REHAB 18:00
PROVIDERS: ADMIT Emergency Medicine; ATTEND Emergency Medicine
DX: G72.89 Other specified myopathies (principal); E87.6 Hypokalemia; N28.9 Disorder of kidney and ureter, unspecified; K25.9 Gastric ulcer, unspecified as acute or chronic, without hemorrhage or perforation; M19.90 Unspecified osteoarthritis, unspecified site; K80.20 Calculus of gallbladder without cholecystitis without obstruction; I48.91 Unspecified atrial fibrillation; D50.9 Iron deficiency anemia, unspecified; I10 Essential (primary) hypertension; E11.65 Type 2 diabetes mellitus with hyperglycemia; I50.9 Heart failure, unspecified

== ENCOUNTER 2018-04-30 04:22 | Inpatient (IN) | payer MEDICARE, OTHER ==
[2018-04-30] VITALS (79 sets, daily range): BP systolic 66–121; BP diastolic 29–99; BMI 25.6
[~2018-04-30] VITALS: Ht 147.3 cm; Wt 65.1 kg
--- NOTE | ~2018-04-30 | CN ---
PATIENT NAME:EVARISTO JOAQUIN MEDICAL RECORD: [id number] : 44 LOCATION:LANED.2307 ADMIT DATE: 04/30/18 ACCOUNT: [id number] CONSULTING PHYSICIAN: KATHERINE DICKSON MD REFERRING PHYSICIAN: ARLENE OVERTON MD DATE OF CONSULTATION: 04/30/2018 CONSULT REQUESTING PHYSICIAN: Michael Alex MD REASON FOR CONSULTATION: Vent management status post cardiopulmonary arrest. HISTORY OF PRESENT ILLNESS: Ms. Joaquin is a 78-year-old female who is a prison resident for rehabilitation. The patient has history of CHF, atrial fibrillation. She recently was having influenza. She also having a fall. In the prison, she got contusion of the chest wall and abdomen with retroperitoneal bleed. The patient coded and she was resuscitated for almost 30 minutes. REVIEW OF SYSTEMS: The detail is not obtainable. Now, the patient is orally intubated, unresponsive. The history was taken by talking to Dr. Borjas and the nursing staff. PAST MEDICAL HISTORY: 1. Atrial fibrillation. 2. Hypertension. 3. Chronic obstructive pulmonary disease. 4. Gastroesophageal reflux disease. 5. Arthritis. PAST SURGICAL HISTORY: She has a cataract surgery. ALLERGIES: SHE IS ALLERGIC TO ERYTHROPOIETIN, SULFA, DEPAKOTE, MACROBID AND SIMVASTATIN. MEDICATIONS: On [email or web address] is reviewed. PERSONAL AND SOCIAL HISTORY: The patient is a nonsmoker, nondrinker. FAMILY HISTORY: Noncontributory. PHYSICAL EXAMINATION: GENERAL: Now, the patient is orally intubated and sedated. She is on assist controlled mechanical ventilation with the tidal volume of 450, rate of 16, PEEP of 5. VITAL SIGNS: The blood pressure is from 77 to 105, respiration is 14, pulse is 103 to 110, temperature 97.3, SPO2 is 98%, assist control mechanical ventilation. HEENT: Conjunctivae are pink. The sclerae are not icteric. The pupils are 2-mm and fixed. NECK: Supple, no JVD. CHEST: There are bilateral crackles. No wheezing. HEART: Rate and rhythm irregular, normal sound, no murmur. ABDOMEN: Soft. There is contusion. Bowel sounds are muffled. RECTAL: Deferred. EXTREMITIES: No cyanosis, no clubbing, no pedal edema. CONSULT REPORT [id number] EVARISTO JOAQUIN CENTRAL NERVOUS SYSTEM: The patient is unresponsive to pain and verbal stimuli. CHEST RADIOGRAPH: There is bilateral pleural effusion, bilateral infiltrate, infiltrate right lower lobe. CT scan of the abdomen showed there is infiltrate bilaterally, right more than the left. LABORATORY DATA: CBC: the WBC is 16.2, hemoglobin 10.7, hematocrit 37 and the platelet count is 132. Chemistry, the sodium is 138, potassium is 6.2, BUN is 35, creatinine is 2.6, lactic acid level is 8.5, total bilirubin is 6.21, AST is 19.2. ALT is 929, alkaline phosphatase is 194. Ammonia level is 52. ABG: The pH is 7.18, pCO2 of 52, pO2 was 544, bicarbonate was 19.8. Lactic acid level is 10.24. IMPRESSION: 1. Cardiopulmonary arrest. 2. Multilobar pneumonia. 3. Pleural effusion. 4. Metabolic acidosis consistent with the lactic acidosis. 5. Septic and cardiogenic shock. 6. Acute renal failure secondary to acute tubular necrosis. 7. Liver failure secondary to shock liver. 8. Anoxic encephalopathy. 9. Hepatic encephalopathy. 10. Congestive heart failure with elevated cardiac enzymes, most likely secondary to acute systolic dysfunction. 11. Hyperkalemia. 12. Retroperitoneal bleed. 13. Atrial fibrillation. RECOMMENDATION: 1. We will continue mechanical ventilation, adjust the setting. 2. Discontinue clindamycin. Discontinue gentamicin. Add Levaquin. Continue meropenem. Adjust the dose to renal function. 3. DVT and GI bleed prophylaxis. 4. Lovenox subQ. 5. Bicarbonate drip. 6. Follow ABG and chest radiograph and labs and chemistry. 7. Detailed discussion with Dr. Borjas and patient's son, the prognosis is poor. Most likely, the patient has anoxic encephalopathy as well as multiorgan failure. GI, cardiology and nephrology on board. The critical care time is one hour. Dr. Alex, thank you for involving me in the care of Ms. Joaquin. TRANSINT:[id number] Voice Confirmation ID: [id number] DOCUMENT ID: [id number] KATHERINE DICKSON MD CC: [id number] DICTATION DATE: 04/30/18 1130 [employer] CONSULTANT: 04/30/18 1315 ADM IN [place] [id number] [place] [address]
[~2018-04-30 04:22] MED LIST changes: +ELIQUIS2.5 MG PO; +K-TAB10 MEQ PO; +ROBITUSSIN DM 110 ML PO; +TAMIFLU75 MG PO; +Tessalon Perle PO
[2018-04-30 04:31] LABS: BASOPHILS 0.2 % (0-2); EOSINOPHILS 0 % (0-7); HEMOGLOBIN 10.7 g/dL (12-16); IMMATURE GRANULOCYTES 2.2 % (0-5); LYMPHOCYTES 16.2 % (15-50); MCH 25.2 pg (26.0-34.0); MCHC 28.9 g/dL (31.0-37.0); MCV 87.3 fL (80.0-100.0); MONOCYTES 6.9 % (2-11); NEUTROPHILS 74.5 % (40-80); PLATELET COUNT 132 10x3/uL (130-400); RBC 4.24 10x6/uL (4.00-5.40); RDW 27.5 % (11.5-14.5); WBC 16.2 10x3/uL (4.8-10.8)
[2018-04-30 04:38] LABS: APTT 45.6 SECONDS (22.8-39.4)
[2018-04-30 04:39] LABS: PROTIME 46.5 SECONDS (11.6-15.0)
--- NOTE | 2018-04-30 04:40 | NUR ---
APLLY WRIST RESTRAINTS FOR AIRWAY PROTECTION PER DR. GREWAL
[2018-04-30 04:43] LABS: INR 5.14 (0.85-1.17)
[2018-04-30 04:50] LABS: D-DIMER-QUANTITATIVE 11.49 ug/mLFEU (0.20-0.54)
[2018-04-30 05:03] LABS: ALBUMIN 1.8 g/dL (3.4-5.0); ALKALINE PHOSPHATASE 194 U/L (46-116); ALT (SGPT) 929 U/L (10-68); BILIRUBIN - TOTAL 6.21 mg/dL (0.2-1.3); CALC OSMOLALITY 283 mosm/kg (275-300); CALCIUM 8.1 mg/dL (8.5-10.1); CARBON DIOXIDE 24.2 mmol/L (21.0-32.0); CHLORIDE - SERUM 101 mmol/L (98-107); CKMB 5.5 U/L (0.0-3.6); CREATINE KINASE 180 UL (21-215); CREATININE - SERUM 2.6 mg/dL (0.6-1.3); GLUCOSE 105 mg/dL (74-106); PROTEIN - SERUM 6.4 g/dL (6.4-8.2); SODIUM 138 mmol/L (136-145); UREA NITROGEN 35 mg/dL (7-18); eGFR NON AFRICAN AMERICAN 19 mL/min (90-120)
[2018-04-30 05:04] LABS: POTASSIUM - SERUM 6.2 mmol/L (3.5-5.1); TROPONIN-I 0.288 ng/mL (0.000-0.060)
--- NOTE | 2018-04-30 05:40 | NUR ---
KAREN COMPLETED AT THIS TIME
--- NOTE | 2018-04-30 07:15 | NUR ---
REC'D FROM ER VIA STRETCHER, INTUBATED ON VENTILATOR WITH SETTINGS AC 16/TV 450/FIO2 40%/PEEP +5. ON LEVOPHED GTT @ 10MCG/MIN ACCOMPANIED BY STAFF & SON.
--- NOTE | 2018-04-30 08:00 | NUR ---
ADMISSION ASSESS/ HISTORY DONE.
[2018-04-30 11:18] LABS: HEMATOCRIT 36.5 % (36.0-48.0); HEMOGLOBIN 10.8 g/dL (12-16)
--- NOTE | 2018-04-30 11:30 | NUR ---
REASSESSED @ THIS TIME W/O CHANGE OTHER THAN SKIN WARM AND RT DP PALP-WEAK. FURTHER EVENTS 0800- 1130: 0740- WARMING BLANKET PLACED D/T TEMP 94.3 AX LEVO TITRATED DOWN TO 6 MCG IN 2MCG INCREMENTS AND THEN UP TO 8MCG (SEE VSS) FLEX BARAJAS & YESSI IN- ORDERS REC'D WELL CONFERENCING WITH SON TO DISCUSS CONDITION AND PROGNOSIS. SON WISHES TO INSTATE DNR STATUS. D5W W/NAHCO3 STOPPED D/T NO ORDER. SPOKE W/DR PLASCENCIA VIA PHONE- ORDER REC'D. WARMING BLANKET REMOVED AT TEMP 97.4 AX.
[2018-04-30 11:32] LABS: CALC OSMOLALITY 296 mosm/kg (275-300); CALCIUM 8.3 mg/dL (8.5-10.1); CHLORIDE - SERUM 100 mmol/L (98-107); CKMB 13.7 U/L (0.0-3.6); CREATININE - SERUM 2.7 mg/dL (0.6-1.3); GLUCOSE 314 mg/dL (74-106); SODIUM 138 mmol/L (136-145); UREA NITROGEN 37 mg/dL (7-18); eGFR NON AFRICAN AMERICAN 18 mL/min (90-120)
[2018-04-30 11:33] LABS: CREATINE KINASE 306 UL (21-215); POTASSIUM - SERUM 4.7 mmol/L (3.5-5.1); TROPONIN-I 0.436 ng/mL (0.000-0.060)
--- NOTE | 2018-04-30 12:15 | NUR ---
DR STEVENSON NOTIFIED OF CONSULT.
--- NOTE | 2018-04-30 13:00 | NUR ---
DR BAUTISTA AT BEDSIDE- ORDERS REC'D
--- NOTE | 2018-04-30 15:00 | NUR ---
REASSESSED W/O CHANGES. LEVOPHED TITRATED UP TO 12 MCG IN 2 MCG INCREMENTS OVER LAST HOUR- SEE VS.
--- NOTE | 2018-04-30 17:56 | NUR ---
FFP STARTED. REPOSITIONED. NEURO UNCHANGED.
--- NOTE | 2018-04-30 18:30 | NUR ---
LEVOPHED TITRATED DOWN IN 2MCG INCREMENTS TO 8 MCG/MIN OVER LAST HOUR- SEE VS.
[2018-04-30 18:34] LABS: CKMB 7.1 U/L (0.0-3.6); CREATINE KINASE 201 UL (21-215)
[2018-04-30 18:39] LABS: TROPONIN-I 0.515 ng/mL (0.000-0.060)
--- NOTE | 2018-04-30 19:11 | NUR ---
REPORT RECEIVED, CARE ASSUMED. PT IS INTUBATED ON THE VENT. WHILE DOING INITIAL ASSESSMENT PT WAS NOTED TO BE CHEWING ON THE TUBE WITH FISTS IN A BALL, HR WAS ELEVATED. SEDATION STARTED. HR DID NOT IMPROVE WITH SEDATION, NOTED TO BE IN UNCONTROLLED AFIB WITH RVR WITH A RATE UP TO 190. DR PHAM. NEW ORDERS RECEIVED. WILL CONTINUE TO MONITOR.
[2018-04-30 19:45] LABS: HEMATOCRIT 31.4 % (36.0-48.0); HEMOGLOBIN 9.6 g/dL (12-16)
[2018-04-30 20:12] LABS: INR 2.74 (0.85-1.17); PROTIME 28.3 SECONDS (11.6-15.0)
--- NOTE | 2018-04-30 21:11 | NUR ---
PT IS IN BED INTUBATED AND SEDATED. PT'S HR IS STABLE NOW. NO SIGNS OF ACUTE DISTRESS. WILL CONTINUE TO MONITOR.
--- NOTE | 2018-04-30 23:12 | NUR ---
REASSESSMENT COMPLETED, SEE FLOWSHEET FOR DETAILS. PT IS LAYING IN BED INTUBATED AND SEDATED. NO SIGNS OF ACUTE DISTRESS. TITRATING LEVOPHED DOWN AT THIS TIME. WILL CONTINUE TO MONITTOR.
[2018-04-30 23:18] LABS: CKMB 7.9 U/L (0.0-3.6)
[2018-04-30 23:20] LABS: CREATINE KINASE 343 UL (21-215); TROPONIN-I 0.529 ng/mL (0.000-0.060)
[2018-05-01] VITALS (94 sets, daily range): BP systolic 70–208; BP diastolic 44–195; BMI 27.1
--- NOTE | 2018-05-01 01:12 | NUR ---
PT IS LAYING IN BED INTUBATED AND SEDATED. PT REPOSITIONED FOR COMFORT. ORAL CARE PERFORMED. NO SIGNS OF ACUTE DISTRESS. WILL CONTINUE TO MONITOR.
--- NOTE | 2018-05-01 02:13 | CN ---
PATIENT NAME:EVARISTO JOAQUIN MEDICAL RECORD: [id number] : 44 LOCATION:LANED.2307 ADMIT DATE: 04/30/18 ACCOUNT: [id number] CONSULTING PHYSICIAN: NITO ROBB MD REFERRING PHYSICIAN: ARLENE OVERTON MD DATE OF CONSULTATION: 04/30/2018 HISTORY: A 78-year-old female with cardiovascular history. She has a history of cardiomyopathy, EF of 40%. She has a history of atrial fibrillation. She actually was in rehab. She had a fall in the restroom, found to have retroperitoneal bleed. She presented to the ER. She was coded for approximately 30 minutes, currently intubated. She does have elevated cardiac enzymes. We are asked to see her concerning her cardiovascular status. PAST MEDICAL HISTORY: Includes; 1. History of cardiomyopathy with EF of 40%. 2. Atrial fibrillation. 3. Hypertension. 4. Diabetes mellitus. MEDICATIONS ON TRANSFER: Include Eliquis 2.5 b.i.d., sotalol 80 mg p.o. daily, Xanax 0.25 q. 8 p.r.n., Lasix 40 b.i.d., potassium supplementation, and Januvia 50 mg daily. ALLERGIES: SULFA, ERYTHROPOIETIN, DEPAKOTE, MACROBID, AND STATIN THERAPY. SOCIAL HISTORY: She is residing in rehab after hospital stay previously. REVIEW OF SYSTEMS: Unobtainable. PHYSICAL EXAMINATION: GENERAL: Intubated and sedated. HEENT: Normocephalic and atraumatic. NECK: No obvious bruits. HEART: Irregular. Rate is controlled. LUNGS: Good air excursion. ABDOMEN: Soft. EXTREMITIES: Pulses are decreased, 1+. No edema. IMPRESSION: Multiorgan system failure, post-code. Elevated cardiac enzymes, multifactorial, including code, etc. I agree with supportive measures your are doing. Not much to offer from a cardiovascular standpoint. Prognosis appears grim at this point. TRANSINT:[id number] Voice Confirmation ID: [id number] DOCUMENT ID: [id number] NITO ROBB MD at 0213 CC: [id number] DICTATION DATE: 04/30/18 1322 ACCOUNTING TEACHER: 04/30/18 1357 ADM IN [place] [address] [facility] [address]
--- NOTE | 2018-05-01 03:13 | NUR ---
REASSESSMENT COMPLETED, SEE FLOWSHEET FOR DETAILS. PT REPOSITIONED FOR COMFORT. ORAL CARE PERFORMED. NO SIGNS OF ACUTE DISTRESS. WILL CONTINUE TO MONITOR.
[2018-05-01 03:49] LABS: BASOPHILS 0.1 % (0-2); EOSINOPHILS 0 % (0-7); HEMATOCRIT 32.3 % (36.0-48.0); HEMOGLOBIN 10.3 g/dL (12-16); IMMATURE GRANULOCYTES 0.3 % (0-5); MCH 25.4 pg (26.0-34.0); MCHC 31.9 g/dL (31.0-37.0); MONOCYTES 3.3 % (2-11); NEUTROPHILS 91.3 % (40-80); RBC 4.06 10x6/uL (4.00-5.40); RDW 27.5 % (11.5-14.5)
[2018-05-01 03:50] LABS: MCV 79.6 fL (80.0-100.0); PLATELET COUNT 104 10x3/uL (130-400)
[2018-05-01 03:57] LABS: INR 2.93 (0.85-1.17); PROTIME 29.8 SECONDS (11.6-15.0)
[2018-05-01 04:12] LABS: ALBUMIN 1.8 g/dL (3.4-5.0); BILIRUBIN - TOTAL 5.33 mg/dL (0.2-1.3); CARBON DIOXIDE 28.4 mmol/L (21.0-32.0); CREATININE - SERUM 2.9 mg/dL (0.6-1.3); PROTEIN - SERUM 6.1 g/dL (6.4-8.2)
[2018-05-01 04:16] LABS: ANION GAP 14.3 mmol/L (8-16); POTASSIUM - SERUM 3.7 mmol/L (3.5-5.1)
--- NOTE | 2018-05-01 05:13 | NUR ---
PT IS LAYING IN BED INTUBATED AND SEDATED. PT REPOSITIONED FOR COMFORT. ORAL CARE PERFORMED. NO SIGNS OF ACUTE DISTRESS. WILL CONTINUE TO MONITOR.
--- NOTE | 2018-05-01 07:30 | NUR ---
ASSESSED. VSS. SEDATED ON VENT WEANING LEVOPHED AND PROPOFOL. DR OVERTON IN.
--- NOTE | 2018-05-01 08:40 | NUR ---
FLEX KWAN & MICHELE ROUND- SPEAK W/SON AT BEDSIDE. PROPOFOL ON HOLD.
--- NOTE | 2018-05-01 09:04 | NUR ---
DR GRAHAM MCINTOSH
--- NOTE | 2018-05-01 11:00 | NUR ---
REASSESSED. INCONT MOD AMT LIQUID BROWN-ORANGE STOOL.
[2018-05-01 11:15] LABS: HEMATOCRIT 34.1 % (36.0-48.0); HEMOGLOBIN 10.4 g/dL (12-16)
--- NOTE | 2018-05-01 13:00 | NUR ---
INCONT SM AMT LIQU BROWN-ORANGE STOOL. MEPILEX DRSG INTACT.
--- NOTE | 2018-05-01 15:00 | NUR ---
REASSESSED, INCONT MOD AMT LIQUID ORANGE-BROWN STOOL. HAVE WEANED LEVOPHED TO 6 MCG IN 2MCG INCREMENTS OVER LAST HOUR- SEE VS.
--- NOTE | 2018-05-01 17:00 | NUR ---
REPOSITIONED. SON AT BEDSIDE AND UPDATED.
--- NOTE | 2018-05-01 17:34 | MORECARE ---
CASE MANAGEMENT DISCHARGE SUMMARY PATIENT: EVARISTO JOAQUIN UNIT: [id number] ADM DATE: 04/30/18 AGE: 78 : 42 SEX: F ROOM/BED: D.2307 AUTHOR: EDGARD MON PHYSICIAN: REFERRING PHYSICIAN: ARLENE OVERTON MD DATE OF SERVICE: 05/01/18 Discharge Plan Patient Name: EVARISTO JOAQUIN [facility] [facility] 1940 Planned Disposition: Anticipated Discharge Date: Discharge Date: Expected LOS: Initial Reviewer: [email or web address] Initial Review Date: 04/30/2018 Generated: 05/01/18 6:34 pm Comments DCP- Discharge Planning Updated by [email or web address]: Josefina Rose on 05/01/18 4:[address] CM attempted to visit with patient regarding discharge planning/ needs. Patient currently on vent no family available. CM will continue to follow and assist as needed with discharge planning / needs Patient Name: EVARISTO JOAQUIN Page [id number] at 1734 All edits/amendments must be made on the electronic document DICTATION DATE: 05/01/181733 MINISTER OF RELIGION: FLOR 05/01/181733 RPT#: [id number] DC DATE: STATUS: ADM IN [facility] [address] [place] [address] END OF REPORT
--- NOTE | 2018-05-01 19:12 | NUR ---
REPORT RECEIVED, CARE ASSUMED. INITIAL ASSESSMENT COMPLETED, SEE FLOWSHEET FOR DETAILS. PT IS LAYING IN BED SEDATED AND INTUBATED ON THE VENT. PT WAS INCONTINENT OF A MODERATE AMOUNT OF BROWN LIQUID STOOL. PT WAS CLEANED, BED PADS CHANGED AND PT REPOSITIONED AT THIS TIME. ORAL CARE PERFORMED. NO SIGNS OF ACUTE DISTRESS. WILL CONTINUE TO MONITOR.
[2018-05-01 19:36] LABS: HEMATOCRIT 34.7 % (36.0-48.0); HEMOGLOBIN 10.3 g/dL (12-16)
--- NOTE | 2018-05-01 21:12 | NUR ---
PT IS LAYING IN BED INTUBATED AND ON THE VENT. PT REPOSITIONED FOR COMFORT. ORAL CARE PERFORMED. NO SIGNS OF ACUTE DISTRESS. WILL CONTINUE TO MONITOR.
--- NOTE | 2018-05-01 23:13 | NUR ---
REASSESSMENT COMPLETED, SEE FLOWSHEET FOR DETAILS. PT REPOSITIONED FOR COMFORT. ORAL CARE PERFORMED. NO SIGNS OF ACUTE DISTRESS. WILL CONTINUE TO MONITOR.
[2018-05-02] VITALS (95 sets, daily range): BP systolic 70–110; BP diastolic 47–89
--- NOTE | 2018-05-02 01:13 | NUR ---
PT IS RESTING IN BED INTUBATED AND ON THE VENT. PT REPOSITIONED FOR COMFORT. ORAL CARE PERFORMED. NO SIGNS OF ACUTE DISTRESS. WILL CONTINUE TO MONITOR.
--- NOTE | 2018-05-02 03:14 | NUR ---
REASSESSMENT COMPLETED, SEE FLOWSHEET FOR DETAILS. PT REPOSITIONED FOR COMFORT. ORAL CARE PERFORMED. NO SIGNS OF ACUTE DISTRESS. WILL CONTINUE TO MONITOR.
[2018-05-02 05:00] LABS: BASOPHILS 0 % (0-2); EOSINOPHILS 0 % (0-7); HEMOGLOBIN 9.9 g/dL (12-16); IMMATURE GRANULOCYTES 0.4 % (0-5); LYMPHOCYTES 6.8 % (15-50); MCH 25.3 pg (26.0-34.0); MONOCYTES 4.2 % (2-11); NEUTROPHILS 88.6 % (40-80); PLATELET COUNT 84 10x3/uL (130-400); RBC 3.92 10x6/uL (4.00-5.40); RDW 28.3 % (11.5-14.5); WBC 11.2 10x3/uL (4.8-10.8)
--- NOTE | 2018-05-02 05:14 | NUR ---
PT IS LAYING IN BED INTUBATED AND ON THE VENT. PT WILL FOLLOW SOME COMMANDS. PT WAS INCONTINENT OF A MEDIUM SIZE BM. PT CLEANED, PADS CHANGED, PT REPOSITIONED. ORAL CARE PERFORMED. NO SIGNS OF ACUTE DISTRESS NOTED AT THIS TIME. WILL CONTINUE TO MONITOR.
[2018-05-02 05:19] LABS: MCV 84.2 fL (80.0-100.0)
[2018-05-02 05:35] LABS: ALBUMIN 1.7 g/dL (3.4-5.0); BILIRUBIN - TOTAL 4.34 mg/dL (0.2-1.3); CALCIUM 7.8 mg/dL (8.5-10.1); CARBON DIOXIDE 29.5 mmol/L (21.0-32.0); CREATININE - SERUM 2.9 mg/dL (0.6-1.3); PROTEIN - SERUM 5.8 g/dL (6.4-8.2)
[2018-05-02 05:37] LABS: ANION GAP 13.2 mmol/L (8-16); POTASSIUM - SERUM 2.7 mmol/L (3.5-5.1)
[2018-05-02 06:14] LABS: INR 1.75 (0.85-1.17); PROTIME 19.8 SECONDS (11.6-15.0)
--- NOTE | 2018-05-02 07:00 | NUR ---
RECEIVED PATIENT FROM OFFGOING SHIFT. ON AMIODORONE AND LEVOPHED DRIP. VSS. IN CONTROLLED A-FIB. ON VENTILLATOR PER ORDERED SETTINGS. NO SEDATION--PT FOLLOWS COMMANDS. NO RESTRAINTS. WILL CONTINUE TO MONITOR
[2018-05-02 08:05] LABS: PLATELET ESTIMATE DECREASED
[2018-05-02 08:06] LABS: ROULEAUX OCC
--- NOTE | 2018-05-02 08:46 | NUR ---
PATIENT PLACED ON CPAP MODE TRIALS AT THIS TIME. WILL CONTINUE TO MONITOR
--- NOTE | 2018-05-02 09:40 | NUR ---
SPOKE TO PATIENTS SON SARA. TOLD HIM PATIENT IS PASSING SPONTANEOUS CPAP TRIAL RIGHT NOW AND PULMONOLIGIST WOULD LIKE TO EXTUBATE IF OKAY WITH HIM. STATED THAT IS OKAY WITH HIM AND HE WILL BE HERE IN COUPLE OF HOURS. ALSO STATED OKAY TO REINTUBATE IF NEED TO.
--- NOTE | 2018-05-02 10:00 | NUR ---
PATIENT EXTUBATED AT THIS TIME AND PLACED ON 02 2 LITERS NC. O2 SAT 96%. PULLING AT IV LINES SO LEAVING RESTRATINS ON FOR NOW.
--- NOTE | 2018-05-02 10:09 | NUR ---
PLACED ON DROPLET PRECAUTIONS PER LAB TO RULE OUT MRSA IN SPUTUM
--- NOTE | 2018-05-02 11:00 | NUR ---
PT RESTING IN BED WITH STABLE VS. STILL REQUIRING LEVOPHED DRIP AT 2MCG/MIN.
[2018-05-02 11:10] LABS: HEMOGLOBIN 9.4 g/dL (12-16)
[2018-05-02 11:30] LABS: ANION GAP 11.3 mmol/L (8-16); CALCIUM 7.4 mg/dL (8.5-10.1); CARBON DIOXIDE 29.7 mmol/L (21.0-32.0); CREATININE - SERUM 2.9 mg/dL (0.6-1.3)
--- NOTE | 2018-05-02 12:55 | NUR ---
PT HAD SMALL LOOSE BM. NURSES CLEANED AND CHANGED PADS. PULLED UP IN BED AND TURNED TO LEFT SIDE. NURSE DEEP SUCTIONED THROAT THROUGH NASAL PASSAGE WITH TRACH SUCTION SINCE PATIENT TOO WEAK TO COUGH UP SECRETIONS. CHANGED TUBING FOR AMIODARONE DRIP. VSS. LEVOPHED STILL AT 2MCG/MIN
--- NOTE | 2018-05-02 14:04 | NUR ---
SPOKE TO DR. KWAN ON PHONE ABOUT SPUTUM CULTURE. STATED HE WILL LOOK AT IT AND PUT IN ORDER
--- NOTE | 2018-05-02 15:45 | NUR ---
PLACED BEAR HUGGER ON PATIENT FOR AXILLARY TEMP OF 94.5. ALSO DEEP SUCTIONED THOUGH NASAL PASSAGE.
--- NOTE | 2018-05-02 17:00 | NUR ---
TEMPERATURE 96.5 AXILLARY SINCE BEAR HUGGER.
--- NOTE | 2018-05-02 18:18 | MORECARE ---
CASE MANAGEMENT DISCHARGE SUMMARY PATIENT: EVARISTO STARR UNIT: [id number] ADM DATE: 04/30/18 AGE: 78 : 42 SEX: F ROOM/BED: D.2307 AUTHOR: EDGARD MON PHYSICIAN: REFERRING PHYSICIAN: ARLENE OVERTON MD DATE OF SERVICE: 05/02/18 Discharge Plan Patient Name: EVARISTO STARR Facility: [facility]:[place] : 1940 Planned Disposition: Anticipated Discharge Date: Discharge Date: Expected LOS: Initial Reviewer: [email or web address] Initial Review Date: 05/02/2018 Generated: 05/02/18 7:17 pm Comments DCP- Discharge Planning Updated by [email or web address]: Josefina Rose on 05/01/18 4:[address] CM attempted to visit with patient regarding discharge planning/ needs. Patient currently on vent no family available. CM will continue to follow and assist as needed with discharge planning / needs DCPIA - Discharge Planning Initial Assessment Updated by [email or web address]: Josefina Rose on 05/02/18 6:14 pm * Is the patient Alert and Oriented? No * How many steps to enter\exit or inside your home? 12 * PCP * [facility] * Preadmission Environment Home with Family * ADLs Independent * Equipment Bedside Commode * Other Equipment walker * List name and contact numbers for known caregivers / representatives who currently or will assist patient after discharge: Nilay Starr - son- [phone], * Verbal permission to speak to the caregivers and representatives has been obtained from the patient. N/A * Community resources currently utilized None * Additional services required to return to the preadmission environment? No * Can the patient safely return to the preadmission environment? Yes * Has this patient been hospitalized within the prior 30 days at any hospital? Yes Last DP export: 05/01/18 4:34 p Patient Name: EVARISTO STARR Page [phone] at 6018 All edits/amendments must be made on the electronic document DICTATION DATE: 05/02/181816 HADOOP JAVA DEVELOPER: FLOR 05/02/18 1817 RPT#: [id number] DC DATE: STATUS: ADM IN [facility] [address] [place] [address] END OF REPORT
--- NOTE | 2018-05-02 18:25 | MORECARE ---
CASE MANAGEMENT DISCHARGE SUMMARY PATIENT: EVARISTO STARR UNIT: [id number] ADM DATE: 04/30/18 AGE: 78 : 42 SEX: F ROOM/BED: D.2307 AUTHOR: ELIESER,DOC PHYSICIAN: REFERRING PHYSICIAN: ARLENE OVERTON MD DATE OF SERVICE: 05/02/18 Discharge Plan Patient Name: EVARISTO STARR Facility: [facility]:[place] : 1940 Planned Disposition: Anticipated Discharge Date: Discharge Date: Expected LOS: Initial Reviewer: [email or web address] Initial Review Date: 05/02/2018 Generated: 05/02/18 7:25 pm Comments DCP- Discharge Planning Updated by [email or web address]: Josefina Rose on 05/02/18 5:[address] Patient Name: EVARISTO STARR Admission Status: ER Accout number: [id number] Admission Date: 04-30-2018 : 1940 Admission Diagnosis:SEPSIS, UNSPECIFIED ORGANISM Attending: ARLENE OVERTON Current LOS: 2 Anticipated DC Date: Planned Disposition: Primary Insurance: MEDICARE A & B Discharge Planning Comments: CM spoke with son Nilay. Patient isn't responding currently. Nilay states that patient lives with him. She has a walker and a BSC at home. Uncertain of planned disposition at this time. Nilay denies patient having any home health services prior to admission. Nilay denies any needs currently. CM will continue to follow and assist as needed with discharge planning / needs. Wet Finisher: Josefina Rose DCP- Discharge Planning Updated by [email or web address]: Josefina Rose on 05/01/18 4:[address] CM attempted to visit with patient regarding discharge planning/ needs. Patient currently on vent no family available. CM will continue to follow and assist as needed with discharge planning / needs DCPIA - Discharge Planning Initial Assessment Updated by [email or web address]: Josefina Rose on 05/02/18 6:14 pm * Is the patient Alert and Oriented? No * How many steps to enter\exit or inside your home? 12 * PCP * [facility] * Preadmission Environment Home with Family * ADLs Independent * Equipment Bedside Commode * Other Equipment walker * List name and contact numbers for known caregivers / representatives who currently or will assist patient after discharge: Nilay Starr - son- [phone], * Verbal permission to speak to the caregivers and representatives has been obtained from the patient. N/A * Community resources currently utilized None * Additional services required to return to the preadmission environment? No * Can the patient safely return to the preadmission environment? Yes * Has this patient been hospitalized within the prior 30 days at any hospital? Yes Last DP export: 05/02/18 5:17 p Patient Name: EVARISTO STARR Page [phone] at 1825 All edits/amendments must be made on the electronic document DICTATION DATE: 05/02/181824 JAVA SDET: FLOR 05/02/181824 RPT#: [id number] DC DATE: STATUS: ADM IN [facility] [address] [place] [address] END OF REPORT
--- NOTE | 2018-05-02 19:13 | NUR ---
REPORT RECEIVED, CARE ASSUMED. INITIAL ASSESSMENT COMPLETED, SEE FLOWSHEET FOR DETAILS. PT IS RESTING IN BED ON NASAL CANNULA AT THIS TIME. NO SIGNS OF ACUTE DISTRESS. PT REPOSITIONED FOR COMFORT. WILL CONTINUE TO MONITOR.
[2018-05-02 19:23] LABS: HEMATOCRIT 30.5 % (36.0-48.0); HEMOGLOBIN 8.9 g/dL (12-16)
--- NOTE | 2018-05-02 21:13 | NUR ---
PT IS RESTING IN BED AT THIS TIME. PT REPOSITIONED FOR COMFORT. NO SIGNS OF ACUTE DISTRESS. WILL CONTINUE TO MONITOR.
--- NOTE | 2018-05-02 23:14 | NUR ---
REASSESSMENT COMPLETED, SEE FLOWSHEET FOR DETAILS. NO SIGNS OF ACUTE DISTRESS. WILL CONTINUE TO MONITOR.
[2018-05-03] VITALS (68 sets, daily range): BP systolic 79–133; BP diastolic 42–85
--- NOTE | 2018-05-03 01:14 | NUR ---
PT IS RESTING IN BED WITH EYES CLOSED AT THIS TIME. PT REPOSITIONED FOR COMFORT. NO SIGNS OF ACUTE DISTRESS. WILL CONTINUE TO MONITOR.
--- NOTE | 2018-05-03 03:15 | NUR ---
REASSESSMENT COMPLETED, SEE FLOWSHEET FOR DETAILS. PT REPOSITIONED FOR COMFORT. PT IS LAYING IN BED WITH EYES CLOSED. NO SIGNS OF ACUTE DISTRESS. WILL CONTINUE TO MONITOR.
[2018-05-03 04:56] LABS: INR 1.49 (0.85-1.17); PROTIME 17.4 SECONDS (11.6-15.0)
[2018-05-03 05:10] LABS: BASOPHILS 0.1 % (0-2); EOSINOPHILS 0 % (0-7); HEMATOCRIT 29.5 % (36.0-48.0); HEMOGLOBIN 8.7 g/dL (12-16); IMMATURE GRANULOCYTES 0.6 % (0-5); LYMPHOCYTES 7.3 % (15-50); MCH 25.1 pg (26.0-34.0); MCHC 29.5 g/dL (31.0-37.0); MCV 85.3 fL (80.0-100.0); MONOCYTES 7.5 % (2-11); NEUTROPHILS 84.5 % (40-80); PLATELET COUNT 60 10x3/uL (130-400); RBC 3.46 10x6/uL (4.00-5.40); RDW 28.6 % (11.5-14.5); WBC 10.6 10x3/uL (4.8-10.8)
--- NOTE | 2018-05-03 05:15 | NUR ---
PT IS LAYING IN BED WITH EYES CLOSED AT THIS TIME. NO SIGNS OF ACUTE DISTRESS. WILL CONTINUE TO MONITOR.
[2018-05-03 05:33] LABS: ALBUMIN 1.6 g/dL (3.4-5.0); ANION GAP 12.4 mmol/L (8-16); BILIRUBIN - TOTAL 3.57 mg/dL (0.2-1.3); CARBON DIOXIDE 26.6 mmol/L (21.0-32.0); CREATININE - SERUM 2.7 mg/dL (0.6-1.3); PROTEIN - SERUM 5.4 g/dL (6.4-8.2)
--- NOTE | 2018-05-03 07:00 | NUR ---
REC'D REPORT AND RESUEMD CARE, PAT SLEEPING, AROUSABLE TO VERBAL STIMULI, APHASIC, ONSE NOT FOLLOW COMMANDS, ASSESSMENT COMPLETED PER FLOWSHEET, REPOSTIONED TO LEFT SIDE WITH PILLOW PROPPED TO BACK AND HEELS FLOATED
--- NOTE | 2018-05-03 08:30 | NUR ---
DR BAUTISTA HERE FOR EVVALERIE DISCUSSED POC WITH SONS, WANTS IR TO F/U
--- NOTE | 2018-05-03 08:51 | NUR ---
MORNING MEDS GIVEN, VICTOR M WITH INTERVENTIONAL RADIOLOLGY AT BED SIDE, DISCUSSED POC WITH MALI
--- NOTE | 2018-05-03 09:00 | NUR ---
DR. KWAN HERE, STATUS UPDATED GIVEN
--- NOTE | 2018-05-03 09:52 | NUR ---
Nutrition follow-up: Pt extubated 05/02. Pt currently unsafe for po intake per speech eval 05/02. Speech to evaluate pt again today. Labs reviewed Wt: 136# Droplet isolation for MRSA sputum If po diet unable to start today recommend starting TF of Osmolite 1.0 irma @ 25 ml/hr with graudal increase to goal rate of 50 ml/hr with 25 ml H2O flush Q hour. RDN following.
--- NOTE | 2018-05-03 10:30 | NUR ---
SE COMPLETED BY MARBELLA GARCÍA SP, STATES PATIENT IS NOT READY FOR SWALLOWING, WILL RE EVALUATE IN A COUPLE OF DAYS
--- NOTE | 2018-05-03 12:10 | NUR ---
ANXIOUS, PULLING AT LINES AND PULLING GOWN OFF, DENISHA PROGRAM MANAGEMENT INTERN WITH RENAL, HERE FOR EVAL, NEW ORDER GIVEN FOR 0.5 MG ATIVAN IVP 1218 ATIVAN GIVEN PER MAR FLOWSHEET
[2018-05-03 17:56] LABS: ANION GAP 11.4 mmol/L (8-16); CALCIUM 7.2 mg/dL (8.5-10.1); CARBON DIOXIDE 29.3 mmol/L (21.0-32.0); CREATININE - SERUM 2.5 mg/dL (0.6-1.3)
[2018-05-03 18:09] LABS: POTASSIUM - SERUM 3.7 mmol/L (3.5-5.1)
--- NOTE | 2018-05-03 19:14 | NUR ---
REPORT RECEIVED, CARE ASSUMED. INITIAL ASSESSMENT COMPLETED, SEE FLOWSHEET. PT IS LAYING IN BED AT THIS TIME, REPOSITIONED FOR COMFORT. NO SIGNS OF ACUTE DISTRESS. PT IS PULLING AT GOWN AND LINES. PT APPEARS TO BE RESTLESS. WILL CONTINUE TO MONITOR.
--- NOTE | 2018-05-03 21:14 | NUR ---
PT IS RESTING IN BED AT THIS TIME. PT REPOSITIONED FOR COMFORT. NO SIGNS OF ACTUE DISTRESS. WILL CONTINUE TO MONITOR.
--- NOTE | 2018-05-03 23:15 | NUR ---
REASSESSMENT COMPLETED, SEE FLOWSHEET FOR DETAILS. PT WAS INCONTINENT OF A SMALL BM, PT WAS CLEANED AND REPOSITIONED FOR COMFORT. NO SIGNS OF ACUTE DISTRESS. WILL CONTINUE TO MONITOR.
[2018-05-04] VITALS (24 sets, daily range): BP systolic 87–124; BP diastolic 55–82
--- NOTE | 2018-05-04 01:15 | NUR ---
PT IS RESTING IN BED AT THIS TIME. PT REPOSITIONED IN BED FOR COMFORT. NO SIGNS OF ACUTE DISTRESS. WILL CONTINUE TO MONITOR.
--- NOTE | 2018-05-04 03:16 | NUR ---
REASSESSMENT COMPLETED, SEE FLOWSHEET FOR DETAILS. PT IS RESTING IN WITH EYES CLOSED AT THIS TIME. PT REPOSITIONED FOR COMFORT. NO SIGNS OF ACUTE DISTRESS. WILL CONTINUE TO MONITOR.
[2018-05-04 04:44] LABS: BASOPHILS 0.2 % (0-2); EOSINOPHILS 0 % (0-7); HEMATOCRIT 33.7 % (36.0-48.0); HEMOGLOBIN 9.9 g/dL (12-16); IMMATURE GRANULOCYTES 1.5 % (0-5); LYMPHOCYTES 8.9 % (15-50); MCH 25.6 pg (26.0-34.0); MCHC 29.4 g/dL (31.0-37.0); MCV 87.1 fL (80.0-100.0); MONOCYTES 9.9 % (2-11); NEUTROPHILS 79.5 % (40-80); RBC 3.87 10x6/uL (4.00-5.40); RDW 29.2 % (11.5-14.5); WBC 9.1 10x3/uL (4.8-10.8)
[2018-05-04 04:45] LABS: PLATELET COUNT 45 10x3/uL (130-400)
[2018-05-04 04:59] LABS: ANION GAP 14.8 mmol/L (8-16); BILIRUBIN - TOTAL 4.88 mg/dL (0.2-1.3); CALCIUM 7.6 mg/dL (8.5-10.1); CARBON DIOXIDE 26.6 mmol/L (21.0-32.0); CREATININE - SERUM 2.2 mg/dL (0.6-1.3); POTASSIUM - SERUM 3.4 mmol/L (3.5-5.1); PROTEIN - SERUM 6.5 g/dL (6.4-8.2)
[2018-05-04 05:00] LABS: INR 1.4 (0.85-1.17); PROTIME 16.6 SECONDS (11.6-15.0)
[2018-05-04 05:13] LABS: PLATELET ESTIMATE DECREASED
--- NOTE | 2018-05-04 05:16 | NUR ---
PT IS RESTING IN BED WITH EYES CLOSED. NO SIGNS OF ACUTE DISTRESS. WILL CONTINUE TO MONITOR.
--- NOTE | 2018-05-04 05:57 | NUR ---
22 G IV SITED TO RIGHT HAND, DUE TO PT BENDING ARM AND OCCULDING FLUIDS RUNNING INTO RIGHT AC.
--- NOTE | 2018-05-04 07:00 | NUR ---
PATIENT RESTING IN BED ON ROOM AIR. IN A-FIB--AMIODARONE INFUSING. VSS OTHERWISE. STILL CONFUSED AND NON-VERBAL. WILL CONTINUE TO MONITOR
--- NOTE | 2018-05-04 08:47 | NUR ---
OBTAINED ORDER TO INFUSE [address] BAUTIST[address]. OBTAINED ORDER FOR NGT AND PICC LINE FROM DR. KWAN
--- NOTE | 2018-05-04 09:47 | NUR ---
PATIENT HAD LOOSE INCONTINENT BM. CLEANED AND CHANGED AND PULLED UP IN BED. VSS
--- NOTE | 2018-05-04 10:16 | NUR ---
NOTIFIED DR. SMITH OF CONSULT FOR PEG TUBE PLACEMENT
--- NOTE | 2018-05-04 11:20 | NUR ---
STARTED PLATELET TRANSFUSION AT THIS TIME. VITAL SINGS STABLE
--- NOTE | 2018-05-04 13:03 | NUR ---
14 GUAGE NGT DROPPED THOUGH LEFT NARE. AUSCULTATED FOR PLACEMENT. SECURED IN PLACE WITH TAPE. VSS
--- NOTE | 2018-05-04 14:43 | NUR ---
Nutrition follow-up/consult: Pt unsafe for oral intake NGT placed and Nepro started @ 10 ml/hr with increase to goal rate of 40 ml/hr Possible PEG placement soon Labs reviewed; K low Wt: 132# with Ht being only 4'10" Recommend Nepro goal rate of 35 ml/hr which will better meet pts estimated nutritional needs. Thank you for the consult. RDN following.
--- NOTE | 2018-05-04 15:00 | NUR ---
INITIATED TUBE FEED OF NEPRO AT THIS TIME. INFUSING AT 10ML/HR WITH 20 CC FLUSH Q 1 HR
[2018-05-04 15:29] LABS: CALCIUM 7.5 mg/dL (8.5-10.1); CARBON DIOXIDE 27.1 mmol/L (21.0-32.0); CREATININE - SERUM 2.2 mg/dL (0.6-1.3); POTASSIUM - SERUM 3.1 mmol/L (3.5-5.1)
--- NOTE | 2018-05-04 16:30 | NUR ---
PLATELET TRANSFUSION COMPLETE AT THIS TIME. VSS
--- NOTE | 2018-05-04 18:12 | NUR ---
PULLED PT UP IN BED AND CHANGED PAD. VSS.
--- NOTE | 2018-05-04 19:00 | NUR ---
REPORT RECEIVED. RECEIVED PT IN BED RESTING WITH EYES CLOSED. ROUSED EASILY TO VERBAL STIMULI. SPEECH GARBLED. ABLE TO FOLLOW SOME COMMANDS. GRASP EQUAL BILAT. NGT TO LFT NARE INTACT WITH NEPRO INFUSING @ 10ML/HR PER PUMP. HOB UP 40 DEGREES. MONITORS CONNECTED TO PT WITH ALARMS SET. NEEDS/WANTS ANTICIPATED AND MET BY STAFF. DEPENDANT ON STAFF FOR ADLS.
--- NOTE | 2018-05-04 21:00 | NUR ---
RESTING WITH EYES CLOSED. EASILY ROUSED AND ALERT. VSS.
[2018-05-05] VITALS (24 sets, daily range): BP systolic 94–143; BP diastolic 45–106; Ht 147.3 cm; Wt 65.1 kg
--- NOTE | 2018-05-05 01:00 | NUR ---
PT LAYING IN BED RESTING. VSS. COMPLETE BED BATH GIVEN. GRIFFIN CARE PROVIDED. COMPLETE LINEN CHANGE PROVIDED.
[2018-05-05 03:11] LABS: ALBUMIN 1.8 g/dL (3.4-5.0); ANION GAP 8.9 mmol/L (8-16); BILIRUBIN - TOTAL 4.3 mg/dL (0.2-1.3); CALCIUM 7.7 mg/dL (8.5-10.1); CARBON DIOXIDE 26.4 mmol/L (21.0-32.0); CREATININE - SERUM 2.1 mg/dL (0.6-1.3); POTASSIUM - SERUM 3.3 mmol/L (3.5-5.1); PROTEIN - SERUM 6.2 g/dL (6.4-8.2)
[2018-05-05 03:22] LABS: INR 1.43 (0.85-1.17); PROTIME 16.8 SECONDS (11.6-15.0)
[2018-05-05 03:28] LABS: BASOPHILS 0.3 % (0-2); EOSINOPHILS 0 % (0-7); HEMATOCRIT 32.3 % (36.0-48.0); HEMOGLOBIN 9.6 g/dL (12-16); IMMATURE GRANULOCYTES 1.9 % (0-5); LYMPHOCYTES 9.5 % (15-50); MCH 25.7 pg (26.0-34.0); MCHC 29.7 g/dL (31.0-37.0); MCV 86.4 fL (80.0-100.0); MONOCYTES 9.1 % (2-11); NEUTROPHILS 79.2 % (40-80); PLATELET COUNT 51 10x3/uL (130-400); RBC 3.74 10x6/uL (4.00-5.40); RDW 29.5 % (11.5-14.5)
--- NOTE | 2018-05-05 05:00 | NUR ---
PT ABLE TO STATE NAME. . UNSURE WHAT HAPPENED. KNOWS SHE IS AT THE HOSPITAL BUT STATES SHE IS AT [facility]. REORIENTATION. VSS. PT RESTING.
--- NOTE | 2018-05-05 07:47 | NUR ---
SHIFT ASSESSMENT COMPLETED. PT AWAKE AND ALERT. KNOWS SHE IS IN THE HOSPITAL. IS ON 2L OF 02 VIA NC. NGT TO LEFT NARE WITH NEPRO AT 10ML/HR. HAS R AC PIV SL. R-FOREARM PIV WITH D5NS AT 70ML/HR. GRIFFIN SECURED IN PLACE WITH DARK MAHNAZ URINE NOTED. WRIST RESTRAINTS IN PLACE TO KEEP PT FROM PULLING AT LINES. SAFETY MEASURES IN PLACE. WILL CONTINUE TO MONITOR.
--- NOTE | 2018-05-05 10:30 | NUR ---
AM MEDS GIVEN. NEPRO INFUSING AT 20ML/HR. PT AWAKE FOLLOW SOME COMMANDS. WILL CONTINUE TO MONITOR.
--- NOTE | 2018-05-05 11:00 | NUR ---
RE-ASSESSMENT COMPLETED. NO ACUTE CHANGES NOTED FROM PREVIOUS ASSESSMENT. NO FEVER. PT GOES INTO UNCONTROLLED A-FIB BUT GOES BACK DOWN TO CONTROLLED A-FIB. WILL CONTINUE TO MONITOR.
--- NOTE | 2018-05-05 11:45 | NUR ---
Nutrition Follow Up: Spoke with nursing about weight and tube feeding Nepro is currently at 20mL/hour. Pt is tolerating TF well Goal rate: 35mL/hour Weight yesterday 132lb Today weight 139lb RD following
--- NOTE | 2018-05-05 13:45 | NUR ---
VISITOR AT BEDSIDE. ORAL CARE PROVIDED. CLEAN GOWN PROVIDED. REPOSITIONED FOR COMFORT. NO FURTHER NEEDS. WILL CONTINUE TO MONITOR.
--- NOTE | 2018-05-05 14:45 | NUR ---
DR. VOGEL CAME TO SEE PT. MADE AWARE ON WEIGHT INCREASE. HE ORDERED TO DC D5NS, ADD 25ML WATER FLUSH Q 1HR WITH TUBE FEEDING, AND 20MG LASIX ONE TIME DOSE.
[2018-05-05 15:28] LABS: ANION GAP 13.4 mmol/L (8-16); CALCIUM 7.6 mg/dL (8.5-10.1); CARBON DIOXIDE 25.7 mmol/L (21.0-32.0); CREATININE - SERUM 1.9 mg/dL (0.6-1.3); POTASSIUM - SERUM 3.1 mmol/L (3.5-5.1)
--- NOTE | 2018-05-05 16:46 | NUR ---
ORAL CARE PROVIDED. 20MG LASIX IV GIVEN PER ORDERS.
--- NOTE | 2018-05-05 18:12 | NUR ---
NEPROLOGY OFFICE CALLED AT THIS TIME. CORPORATE TREASURY ANALYST PHYSICIAN WILL GIVE ME A CALL BACK.
--- NOTE | 2018-05-05 18:36 | NUR ---
SPOKE WITH DR. VOGEL REGARDING POTASSIUM. HE ORDERED 40KCL IV TO BE GIVEN.
--- NOTE | 2018-05-05 19:30 | NUR ---
ASSESSMENT COMPLETE, PER NURSING FLOWSHEET, PATIENT REPOSITIONED, ORAL CARE PROVIDED, WILL CONTINUE TO MONITOR
--- NOTE | 2018-05-05 21:00 | NUR ---
PATIENT REPOSITIONED, THIS PATIENT IS CURRENTLY VERY AGGITATED AND CONFUSED, WILL CONTINUE TO CLOSELY MONITOR
--- NOTE | 2018-05-05 23:00 | NUR ---
RE-ASSESSMENT COMPLETE, PATIENT REPOSITIONED, ORAL CARE PROVIDED, NO OTHER NEEDS COMMUNICATED OR NOTED
[2018-05-06] VITALS (24 sets, daily range): BP systolic 100–138; BP diastolic 38–89
--- NOTE | 2018-05-06 01:00 | NUR ---
PATIENT REPOSITIONED, GRIFFIN CARE PROVIED, CONTINUE POC
--- NOTE | 2018-05-06 03:00 | NUR ---
RE-ASSESSMENT COMPLETE, PER NURSING FLOWSHEET, ORAL CARE PROVIDED, PATIENT REPOSITIONED, CONTINUOUSLY MONITORING
[2018-05-06 04:04] LABS: ANION GAP 10.1 mmol/L (8-16); CARBON DIOXIDE 28.7 mmol/L (21.0-32.0); CREATININE - SERUM 1.8 mg/dL (0.6-1.3)
[2018-05-06 04:05] LABS: POTASSIUM - SERUM 3.8 mmol/L (3.5-5.1)
--- NOTE | 2018-05-06 05:00 | NUR ---
PATIENT REPOSITIONED, PATIENT CALLING OUT, BUT THIS NURSE CANNOT DISCERN WHAT SHE IS SAYING, OTHER THAN "SYLVIA". MULTIPLE UNSUCCESSFUL ATTEMTS TO COMMUNICATE MADE.
--- NOTE | 2018-05-06 07:00 | NUR ---
REC'D CARE OF PT. ALERT. SHE IS ORIENTED TO PLACE AND NAME. REORIENTED TO TIME. SPEECH IS GARBLED BUT YOU CAN UNDERSTAND HER AT TIMES. FOLLOWS COMMANDS. JOHNSON.PPP. ALSO ANSERS QUESTIONS WITH HEAD NODS.
--- NOTE | 2018-05-06 08:13 | NUR ---
DR. OVERTON HERE.
--- NOTE | 2018-05-06 09:30 | NUR ---
FAMILY AT BEDSIDE. UPDATED.
--- NOTE | 2018-05-06 11:24 | NUR ---
REASSESSMENT COMPLETED PER FLOW SHEET. NO ACUTE CHANGES.
[2018-05-06 12:19] LABS: BASOPHILS 0.1 % (0-2); EOSINOPHILS 0 % (0-7); HEMATOCRIT 33.8 % (36.0-48.0); HEMOGLOBIN 10.2 g/dL (12-16); IMMATURE GRANULOCYTES 2.3 % (0-5); LYMPHOCYTES 9.1 % (15-50); MCH 25.6 pg (26.0-34.0); MCHC 30.2 g/dL (31.0-37.0); MCV 84.9 fL (80.0-100.0); NEUTROPHILS 78.5 % (40-80); RBC 3.98 10x6/uL (4.00-5.40); RDW 29.7 % (11.5-14.5); WBC 9.3 10x3/uL (4.8-10.8)
[2018-05-06 12:21] LABS: PLATELET COUNT 49 10x3/uL (130-400)
--- NOTE | 2018-05-06 12:27 | NUR ---
I CALLED DR. BAUTISTA AND UPDATED HER ABOUT PLT COUNT OF 49. NO NEW ORDERS REC'D.
[2018-05-06 12:40] LABS: PLATELET ESTIMATE DECREASED
--- NOTE | 2018-05-06 13:00 | NUR ---
DENIES NEEDS. VSS.
--- NOTE | 2018-05-06 14:39 | NUR ---
REASSESSMENT COMPLETED PER FLOW SHEET. NO ACUTE CHANGES.
--- NOTE | 2018-05-06 16:07 | NUR ---
RESTING WITH EYES CLOSED. REPOSITIONS SELF IN BED. VSS. TACHYCARDIC RATE OF 113. RIGHT AC WITH BICARB GTT. SATTING 95% ON 2L O2 VIA NC.
--- NOTE | 2018-05-06 16:11 | NUR ---
RESTING WITH EYES CLOSED. BP STABLE. CM=UAF RATE OF 113.
--- NOTE | 2018-05-06 19:30 | NUR ---
ASSESSMENT COMPLETE, PER NURSING FLOWSHEET, PATIENT INDEPENDENTLY REPOSITIONS SELF, DRINK PROVIDED, NO OTHER NEEDS VOICED OR NOTED AT THIS TIME
--- NOTE | 2018-05-06 19:30 | NUR ---
PATIENT REPOSITIONED, ORAL CARE PROVIDED, SHIFT ASSESSMENT COMPLETE, CONTINUE POC
--- NOTE | 2018-05-06 21:00 | NUR ---
PATIENT WATCHING TV, SANDWICH PROVIDED, CONTINUE POC
--- NOTE | 2018-05-06 21:00 | NUR ---
PATIENT REPOSITIONED, GRIFFIN FLUSHED AND REPOSITIONED, URINE OUTPUT BEING MONITORED
--- NOTE | 2018-05-06 23:00 | NUR ---
REASSESSMENT COMPLETE, PER NURSING FLOWSHEET, PATIENT NOW ORIENTED, RESTRAINT RELEASE TRIALS INITIATED
--- NOTE | 2018-05-06 23:00 | NUR ---
RE-ASSESSMENT COMPLETE, PATIENT REPOSITIONED, PATIENT CONTINUALLY ATTEMPTING TO LEAN TO RIGHT SIDE, PATIENT ADJUSTED, ORAL CARE PROVIDED. NC ADJUSTED, PATIENT ATTEMPTS TO REMOVE, IT APPEARS TO BE IRRITATING TO HER, CONTINUE POC
[2018-05-07] VITALS (21 sets, daily range): BP systolic 81–129; BP diastolic 49–85
--- NOTE | 2018-05-07 | NUR ---
RESTRAINTS REMOVED, WILL CONTINUE TO MONITOR
--- NOTE | 2018-05-07 01:00 | NUR ---
PATIENT REPOSITIONED, GRIFFIN CARE PROVIDED, PATIENT WAKES AND EASILY FALLS BACK TO SLEEP, VSS
--- NOTE | 2018-05-07 01:00 | NUR ---
GRIFFIN CARE PROVIDED, PATIENT INDEPENDENTLY REPOSITIONS SELF
--- NOTE | 2018-05-07 03:00 | NUR ---
RE-ASSESSMENT COMPLETE, PATIENT REPOSITIONED, NC ADJUSTED, ORAL CARE PROVIDED, CONTINUE POC
[2018-05-07 03:15] LABS: ANION GAP 12.7 mmol/L (8-16); CALCIUM 8.5 mg/dL (8.5-10.1); CARBON DIOXIDE 25.9 mmol/L (21.0-32.0); CREATININE - SERUM 1.7 mg/dL (0.6-1.3); POTASSIUM - SERUM 3.6 mmol/L (3.5-5.1)
[2018-05-07 03:27] LABS: HEMATOCRIT 35.5 % (36.0-48.0); HEMOGLOBIN 10.6 g/dL (12-16); MCH 25.9 pg (26.0-34.0); MCHC 29.9 g/dL (31.0-37.0); MCV 86.8 fL (80.0-100.0); RBC 4.09 10x6/uL (4.00-5.40); RDW 30.2 % (11.5-14.5); WBC 9.3 10x3/uL (4.8-10.8)
[2018-05-07 03:30] LABS: PLATELET COUNT 66 10x3/uL (130-400)
[2018-05-07 04:02] LABS: LYMPHOCYTES 9 % (15-50); MONOCYTES 7 % (2-11); NEUTROPHILS 79 % (40-80); PLATELET ESTIMATE DECREASED
--- NOTE | 2018-05-07 05:00 | NUR ---
PATIENT REPOSITIONED, PATIENT APPEARS MORE LETHARGIC AT THIS TIME, WAKES, ATTEMPTS TO FOLLOW COMMANDS, BUT FALLS IMMEDIATELY BACK TO SLEEP. MONITORING VSS CONTINUOUSLY
--- NOTE | 2018-05-07 06:15 | NUR ---
CHARGE NURSE, DEBBI Esteves RN ASKED TO EVALUATE THIS PATIENT, RESPIRATIONS HAVE BECOME LABORED AND OXYGEN LEVELS ARE DROPPING, DESPITE OPTIMAL POSITIONING.
--- NOTE | 2018-05-07 07:00 | NUR ---
REC'D CARE OF PT.
--- NOTE | 2018-05-07 07:12 | NUR ---
GUPPY BREATHING. RR 36 AND LABORED. SATTING 87%. RT NOTIFIED TO DRAW BLOOD FOR ABG'S.
--- NOTE | 2018-05-07 07:15 | NUR ---
CHRISTIAN'S RESULTED. DR. OVERTON BEING PAGED.
--- NOTE | 2018-05-07 07:15 | NUR ---
DR. ENGLISH GUTIERREZ TO UPDATE REGARDING THIS PATIENT'S STATUS, DAY SHIFT RN NOTIFIED TO BE ALERT FOR RETURN PHONE CALL
--- NOTE | 2018-05-07 07:23 | NUR ---
I SPOKE WITH DR. OVERTON AND UPDATED HIM ABOUT ABG'S. ORDERS TO PUT ON BIPAP AND DR. OVERTON IS CALLING HER SON.
--- NOTE | 2018-05-07 07:26 | NUR ---
BEING PLACED ON BIPAP BY DEV FARNSWORTH
--- NOTE | 2018-05-07 07:51 | NUR ---
ON BIPAP, 100% FIO2 SATTING 99%.
--- NOTE | 2018-05-07 08:10 | NUR ---
DR. OVERTON CALLED ME AND ORDERS REC'D FOR 2 AMPS [id number].
--- NOTE | 2018-05-07 09:20 | NUR ---
DC'D TF PER DR. OVERTON.
--- NOTE | 2018-05-07 10:06 | NUR ---
FAMILY AT BEDSIDE. UPDATED. REMAINS ON BIPAP. LESS LETHARGIC. ANSWERS QUESTIONS WITH HEAD NODS.
--- NOTE | 2018-05-07 10:11 | NUR ---
DR. OVERTON AT BEDSIDE.
--- NOTE | 2018-05-07 11:34 | NUR ---
REASSESSMENT COMPLETED PER FLOW SHEET. SEE CHANGES ON FLOW SHEET.
--- NOTE | 2018-05-07 12:36 | NUR ---
FAMILY AT BEDSIDE.
--- NOTE | 2018-05-07 13:23 | NUR ---
DR. VOGEL AT BEDSIDE.
--- NOTE | 2018-05-07 14:43 | NUR ---
NO MORE LAB DRAWS PER SON.
--- NOTE | 2018-05-07 14:48 | NUR ---
REASSESSMENT COMPLETED PER FLOW SHEET. SEE CHANGES PER FLOW SHEET.
--- NOTE | 2018-05-07 15:40 | NUR ---
C/O "HARD TO BREATH". TOOK BIPAP OFF AND PLACED ON 2L O2 VIA NC. SHAKES HEAD YES WHEN ASKED IF THIS IS BETTER.
--- NOTE | 2018-05-07 15:40 | NUR ---
RR 22 EVEN AND UNLABORED. SATTING 98%.
--- NOTE | 2018-05-07 16:09 | NUR ---
SATTING 98%. RR 24 EVEN BUT LABORED. SPOKE WITH FAMILY ABOUT PLACING BACK ON BIPAP. THEY DO NOT WANT TO PLACE BACK ON BIPAP FOR THEY FEEL THIS IS JUST GOING TO "PROLONG" THE SITUATION. THEY WANT TO USE MORPHINE FOR FOR AIR HUNGER. CALLED DR. OVERTON AND GOT ORDERS FOLLOWS: MORPHINE 2 MG IV Q 15" FOR AIR HUNGER. WILL ADMN AND CONTINUE TO MONITOR. FAMILY AT BEDSIDE.
--- NOTE | 2018-05-07 16:18 | NUR ---
RR 26 EVEN AND LABORED. GUPPY BREATHING.
--- NOTE | 2018-05-07 16:18 | NUR ---
MORPHINE ADMN FOR AIR HUNGER.
--- NOTE | 2018-05-07 17:29 | NUR ---
BP STABLE. CM= RATE OF 96 UAF.
[2018-05-08 03:30] VITALS: BP 99/41
--- NOTE | 2018-05-08 05:20 | NUR ---
PT BP IS DECREASING. NOW IN THE 70'S SYSTOLIC AND RESPIRATIONS ARE BECOMING VERY SHALLOW. HER SON UPDATED VIA PHONE OF CHANGE IN CONDITION. PT APPEARS COMFORTABLE. NO SIGN OF PAIN OR ANXIETY.
--- NOTE | 2018-05-08 06:30 | NUR ---
PTS SON AT BEDSIDE. UPDATE GIVEN.
--- NOTE | 2018-05-08 06:44 | NUR ---
ASYSTOLE PER CM. NO PULSE PALPABLE OR AUSCULTATED.
--- NOTE | 2018-05-08 15:26 | MORECARE ---
CASE MANAGEMENT DISCHARGE SUMMARY PATIENT: EVARISTO STARR UNIT: [id number] ADM DATE: 04/30/18 AGE: 78 : 44 SEX: F ROOM/BED: D.2307 AUTHOR: ELIESER,DOC PHYSICIAN: REFERRING PHYSICIAN: ARLENE OVERTON MD DATE OF SERVICE: 05/08/18 Discharge Plan Patient Name: EVARISTO STARR Facility: [facility]:[place] : 1940 Planned Disposition: Anticipated Discharge Date: Discharge Date: 05/08/2018 Expected LOS: Initial Reviewer: [email or web address] Initial Review Date: 05/02/2018 Generated: 05/08/18 4:26 pm DCP- Discharge Planning Updated by [email or web address]: Josefina Rose on 05/02/18 5:[address] Patient Name: EVARISTO STARR Admission Status: ER Accout number: [id number] Admission Date: 04-30-2018 : 1940 Admission Diagnosis:SEPSIS, UNSPECIFIED ORGANISM Attending: ARLENE OVERTON Current LOS: 2 Anticipated DC Date: Planned Disposition: Primary Insurance: MEDICARE A & B Discharge Planning Comments: CM spoke with son Nilay. Patient isn't responding currently. Nilay states that patient lives with him. She has a walker and a BSC at home. Uncertain of planned disposition at this time. Nilay denies patient having any home health services prior to admission. Nilay denies any needs currently. CM will continue to follow and assist as needed with discharge planning / needs. Hydrologist: Josefina Rose DCP- Discharge Planning Updated by [email or web address]: Josefina Rose on 05/01/18 4:[address] CM attempted to visit with patient regarding discharge planning/ needs. Patient currently on vent no family available. CM will continue to follow and assist as needed with discharge planning / needs DCPIA - Discharge Planning Initial Assessment Updated by [email or web address]: Josefina Rose on 05/02/18 6:14 pm * Is the patient Alert and Oriented? No * How many steps to enter\exit or inside your home? 12 * PCP * [facility] * Preadmission Environment Home with Family * ADLs Independent * Equipment Bedside Commode * Other Equipment walker * List name and contact numbers for known caregivers / representatives who currently or will assist patient after discharge: Nilay Starr - son- [phone], * Verbal permission to speak to the caregivers and representatives has been obtained from the patient. N/A * Community resources currently utilized None * Additional services required to return to the preadmission environment? No * Can the patient safely return to the preadmission environment? Yes * Has this patient been hospitalized within the prior 30 days at any hospital? Yes Last DP export: 05/02/18 5:25 p Patient Name: EVARISTO STARR Page [id number] at 1526 All edits/amendments must be made on the electronic document DICTATION DATE: 05/08/181525 BASIC SCIENCES DEAN: FLOR 05/08/181525 RPT#: [id number] DC DATE:05/08/18 STATUS: DIS IN [facility] [address] [place] [address] END OF REPORT
== END 2018-05-08 08:37 | DRG 871 ==
LOC: D.ER 04:22 → D.ICU 04:55
PROVIDERS: Emergency Medicine; Family Medicine; Internal Medicine Hematology & Oncology; Internal Medicine Nephrology; ADMIT Family Medicine; ATTEND Family Medicine
PROC: 5A1945Z Respiratory Ventilation, 24-96 Consecutive Hours (ICD-10-PCS; principal; 2018-04-30)
PROC: 0BH17EZ Insertion of Endotracheal Airway into Trachea, Via Natural or Artificial Opening (ICD-10-PCS; 2018-04-30)
DX: A41.9 Sepsis, unspecified organism (principal); R65.21 Severe sepsis with septic shock; J18.9 Pneumonia, unspecified organism; N17.0 Acute kidney failure with tubular necrosis; I50.21 Acute systolic (congestive) heart failure; J96.90 Respiratory failure, unspecified, unspecified whether with hypoxia or hypercapnia; K72.00 Acute and subacute hepatic failure without coma; G93.1 Anoxic brain damage, not elsewhere classified; E87.4 Mixed disorder of acid-base balance; R57.0 Cardiogenic shock; I11.0 Hypertensive heart disease with heart failure; E87.5 Hyperkalemia; I48.91 Unspecified atrial fibrillation; R58 Hemorrhage, not elsewhere classified; E87.6 Hypokalemia; Z66 Do not resuscitate; D69.6 Thrombocytopenia, unspecified